=== PATIENT | female | born 1945 | race Caucasian/White ===

== ENCOUNTER 2019-03-10 20:42 | Inpatient (IN) ==
--- NOTE | 2019-03-10 21:09 | Emergency Department Note ---
ED Disposition Clinical Impression: Sepsis Qualifiers: Sepsis type: sepsis due to unspecified organism Sepsis acute organ dysfunction status: without acute organ dysfunction Qualified Code(s): A41.9 - Sepsis, unspecified organism UTI (urinary tract infection) Qualifiers: Urinary tract infection type: site unspecified Hematuria presence: without hematuria Qualified Code(s): N39.0 - Urinary tract infection, site not specified Disposition: Admitted As Inpatient Condition on Discharge: [facility] - Critical Care Critical Care Time: No Attestation: On 03/10/19, the high probability of a clinically significant, sudden or life threatening deterioration of the following system(s) required my full and direct attention, intervention and personal management. The time I documented below is in addition to time spent performing reported procedures but includes the following listed in this critical care notation. Medical Decision Making - [place] Inquiry Pt receiving controlled substance: No Vital Signs: 03/10/19 20:52 03/10/19 23:04 03/10/19 23:43 Temperature 98.5 F 100.9 F H 99.8 F H Temperature Source Oral Oral Oral Pulse Rate [Right Brachial] 105 H 94 H 85 Respiratory Rate 18 18 18 Blood Pressure [Right Arm] 137/72 138/63 130/57 L Blood Pressure Mean [Right Arm] 93 88 81 Blood Pressure Source [Right Arm] Automatic Cuff Automatic Cuff Automatic Cuff Blood Pressure Position [Right Arm] Sitting Sitting Sitting 02 Sat by Pulse Oximetry 95 97 96 Oxygen Delivery Method Room Air Room Air Room Air - Lab Data Lab Results 03/10/19 20:50: WBC 23.5 H*, RBC 4.04 L, Hgb 12.5, Hct 37.8, MCV 93.5, MCH 31.0, MCHC 33.2, RDW 12.4, Plt Count 256, MPV 7.4, Neut % (Auto) 82.0 H, Lymph % (Auto) 9.0 L, [place] % (Auto) 8.5, Eos % (Auto) 0.2, Baso % (Auto) 0.2, Neut # (Auto) 19.2 H, Lymph # (Auto) 2.1, [place] # (Auto) 2.0 H, Eos # (Auto) 0.1, Baso # (Auto) 0.1, Total Counted 100, Neutrophils % (Manual) 85 H, Lymphocytes % (Manual) 11, Monocytes % (Manual) 4, Platelet Estimate Normal, Anisocytosis 1+ 03/10/19 20:50: Sodium 132 L, Potassium 3.9, Chloride 96 L, Carbon Dioxide 24, Anion Gap 15.9 H, BUN 41 H, Creatinine 1.32 H, Estimated Creat Clear 25, Estimated GFR 40 L, Est GFR ( Amer) 48 L, Glucose 112 H, Calcium 9.4, Total Bilirubin 0.6, AST 20, ALT 21, Alkaline Phosphatase 112, Troponin I < 0.02, Total Protein 7.3, Albumin 2.6 L, Globulin 4.7 H, Albumin/Globulin Ratio 0.6 L 03/10/19 21:25: Urine Color Yellow, Urine Appearance Clear, Urine pH 5.5, Ur Specific [place] 1.025, Urine Protein 2+, Urine Glucose (UA) Negative, Urine Ketones Trace, Urine Blood 2+, Urine Nitrate Negative, Urine Bilirubin Negative, Urine Urobilinogen 0.2, Ur Leukocyte Esterase Trace, Urine WBC 10-20, Ur Squamous Epith Cells 3-5, Urine Bacteria 1+ 03/10/19 21:46: Lactate 0.9 Result diagrams: 03/10/19 20:50 03/10/19 20:50 Orders (Tests/Meds): ED MEDICATIONS Generic Name Dose Route Start Last Admin Trade Name Freq PRN Reason Stop Dose Admin Sodium Chloride 1,000 mls @ 999 mls/hr 03/10/19 22:00 03/10/19 21:53 Sod Chlor 0.9% 1000ml Bag IV 03/10/19 23:00 999 mls/hr .Q1H1M TONEY Administration Sodium Chloride 1,000 mls @ 999 mls/hr 03/10/19 23:00 03/10/19 22:56 Sod Chlor 0.9% 1000ml Bag IV 03/11/19 00:00 999 mls/hr .Q1H1M TONEY Administration Ceftriaxone Sodium 1 gm/ 50 mls @ 100 mls/hr 03/10/19 23:30 03/10/19 23:32 Sodium Chloride IV 03/24/19 23:29 100 mls/hr Q24H TONEY Administration Protocol Discontinued Medications Generic Name Dose Route Start Last Admin Trade Name Freq PRN Reason Stop Dose Admin Acetaminophen 650 mg 03/10/19 22:55 03/10/19 22:56 Acetaminophen 325mg Tab PO 03/10/19 22:56 650 mg ONCE ONE Administration Ioversol 70 ml 03/10/19 23:26 03/10/19 23:26 Rad-Optiray 350 100ml Vial IV 03/10/19 23:27 70 ml ONCE ONE Administration Protocol Sodium Chloride 10 ml 03/10/19 23:26 03/10/19 23:26 Rad-Saline Flush 10ml Syringe IV 03/10/19 23:27 10 ml ONCE ONE Administration Sodium Chloride 50 ml 03/10/19 23:26 03/10/19 23:26 Rad-Ns 50ml Vial IV 03/10/19 23:27 50 ml ONCE ONE Administration ORDERS Category Date Time Status CT abdomen pelvis w con Stat Cat Scan 03/10/19 22:[address] angio chest Stat Cat Scan 03/10/19 22:19 Taken XR chest 2V Stat Exams 03/10/19 21:03 Taken Blood Culture Stat Micro 03/10/19 21:49 Received Urine Culture Stat Micro 03/10/19 21:25 Received - Radiology Data #1 Image(s): Chest Image Reviewed: Yes I reviewed the patient's radiology image Preliminary Findings: Normal/NAD - CT Data CT Scan: Abdomen, Pelvis, Chest (CTA) Time Received: 00:[address] Reviewed: Yes: I have viewed the radiologist's interpretation Findings Narrative: CT scan interpreted by [facility] radiologist. Faxed report received and reviewed: Abdo/Pelvis: Bilateral perinephric and periureteral fat stranding with associated diffuse mural enhancement and thickening of the uroepithelium of the bilateral collecting system. CTA chest: No PE. - Physician Consults Physician Consulted: Delfino Time: 00:15 Reason -: Admission Comment/Response: Agrees to admit the patient to the hospital. We discussed the patient's clinical information, including history, exam, laboratory and radiology results and ED course. Per hospital procedure, I will write temporary bridge inpatient orders on the patient. Specific orders requested by the admitting physician: Continue antibiotics, IV fluids General Adult HPI - General Chief complaint: Weakness Stated complaint: Lung pain, dizziness Time Seen by Provider: 03/10/19 21:00 Mode of Arrival: Family Vehicle Limitations: No Limitations Description of Symptoms (Recalled from ER Triage Doc. by RN): Pt c/o being really weak and SOA, not eating for 2 days, she states she had cp earlier today when she took a deep breath but it no longer hurts, she denies any other symptoms at this time. - History of Present Illness HPI narrative: History obtained from patient and daughter. Patient broke her foot 3 days ago was seen in this emergency department. The day after that she began feeling extremely fatigued. Says she cannot hardly hold her eyes open. On Thursday, 2 days ago, she had some vomiting after she drank some coffee and ate cake. No vomiting since. She complains of lower abdominal pain today. Also complains of right lower anterior chest pain today. She developed a cough today, which is nonproductive. No fever, no diarrhea, no urinary symptoms. States she has only taken 2 pain pills, 1 was given in the emergency department and has only taken 1 pill since then. She is a smoker, but has not smoked since she got sick. She is a nondrinker. Primary care doctor is Dr. Cantu. - Related Data Home Medications Medication Instructions Recorded Confirmed Amlodipine Besylate 10 mg PO DAILY 03/07/19 03/07/19 Clopidogrel Bisulfate [Plavix 75mg 75 mg PO DAILY 03/07/19 03/07/19 Tab] Colestipol HCl 1 gm PO BID 03/07/19 03/07/19 Esomeprazole Magnesium 40 mg PO DAILY 03/07/19 03/07/19 Ezetimibe 10 mg PO HS 03/07/19 03/07/19 Levothyroxine Sodium 88 mcg PO DAILY 03/07/19 03/07/19 [Levothyroxine 88mcg (0.088mg) Tab] Metoprolol Succinate 25 mg PO DAILY 03/07/19 03/07/19 Rosuvastatin Calcium 40 mg PO HS 03/07/19 03/07/19 Ubidecarenone [Coq-10] 200 mg PO DAILY 03/07/19 03/07/19 hydroCHLOROthiazide [HCTZ 25mg 25 mg PO DAILY 03/07/19 03/07/19 tab] Previous Rx's Medication Instructions Recorded Hydrocodone/Acetaminophen [[place] 1 tab PO TID PRN 3 Days #10 tab 03/07/19 7.5-325 Tablet] Allergies Allergy/AdvReac Type Severity Reaction Status Date / Time albuterol Allergy Unknown Verified 03/07/19 10:46 ipratropium Allergy Unknown Verified 03/07/19 10:46 naproxen Allergy Unknown Verified 03/07/19 10:46 pravastatin Allergy Unknown Verified 03/07/19 10:46 simvastatin Allergy Unknown Verified 03/07/19 10:46 [facility] History - Hepatitis A Screen Drug use history?: No High risk sexual behaviors?: No History of sexually transmitted infection?: No Currently employed?: No Childcare worker?: No Do you have indoor plumbing?: Yes Do you have electricity?: Yes Attestation statement:: This patient has been screened for Hepatitis A risk factors. I have reviewed the patient's past medical history: Yes Medical History: Reports:: Cancer (hx of thyroid CA) Denies:: Diabetes Mellitus Type 1, Diabetes Mellitus Type 2 - Social History Smoking Status: Current every day smoker Tobacco Type: cigarettes # Packs/Day (cigarettes): 1 Alcohol Intake: never Occupational Status: other Housing: house ROS Obtained: Yes All systems reviewed & no additional complaints - Constitutional Constitutional: Reports fatigue, Denies fever(s), Reports malaise, Reports weakness - Cardiovascular Cardiovascular: Reports chest pain, Denies dyspnea - Respiratory Respiratory: Yes non-productive cough, No coughing up blood - Gastrointestinal Gastrointestingal: Reports: abdominal pain, vomiting. Denies: diarrhea - Genitourinary Female Genitourinary: Denies difficulty voiding Physical Exam - General General appearance: alert, in no apparent distress - Head Head exam: atraumatic, normocephalic - Eye Eye exam: Present: normal appearance, EOMI - ENT ENT exam: Present: mucous membranes moist - Neck Neck exam: Present: normal inspection, trachea midline. Absent: meningismus - Chest Chest inspection: Present: normal inspection, symmetric chest wall rise - Respiratory Respiratory exam: Present: normal lung sounds bilaterally. Absent: respiratory distress - Cardiovascular Cardiovascular exam: Present: regular rate, normal rhythm, normal heart sounds - Abdominal Exam Abdominal exam: Present: soft, tenderness, normal bowel sounds. Absent: distention, guarding, rebound, rigidity Abdominal tenderness: Present: RLQ, LLQ, suprapubic - Neurological Exam Neurological exam: Present: alert, oriented X3, CN II-XII intact. Absent: motor sensory deficit - Psychiatric Psychiatric exam: Present: normal affect, normal mood - Skin Skin exam: Present: warm, dry - Other Other exam information: Orthopedic boot present on left foot. No calf tenderness or edema. Right lower extremity shows no calf tenderness or edema.
[2019-03-10 21:11] LABS: Basophils # 0.1 K/mm3 (0-0.2); Basophils % 0.2 % (0.1-2.0); Eosinophils # 0.1 K/mm3 (0.0-0.4); Eosinophils % 0.2 % (0.1-12.0); Hematocrit 37.8 % (37.0-47.0); Hemoglobin 12.5 g/dL (12.2-16.2); Lymphocytes # 2.1 K/mm3 (0.7-4.5); Mean Corpuscular HGB Conc 33.2 g/dL (31.8-35.4); Mean Corpuscular Volume 93.5 fl (81-99); Mean Platelet Volume 7.4 fl (7.4-10.4); Monocytes % 8.5 % (1.7-9.3); Neutrophils # 19.2 K/mm3 (1.8-7.8); Platelet Count 256 K/mm3 (142-424); Red Blood Count 4.04 M/mm3 (4.20-5.40); Red Cell Distribution Width 12.4 % (11.5-17.5); White Blood Count 23.5 K/mm3 (4.8-10.8)
[2019-03-10 21:50] LABS: Microscopic, Urine URINE MICROSCOPIC (MICROSCOPIC)
[2019-03-10 21:52] LABS: Alanine Aminotransferase 21 U/L (12-78); Albumin Level 2.6 gm/dL (3.4-5.0); Albumin/Globulin Ratio 0.6 (1.1-1.8); Alkaline Phosphatase 112 U/L (46-116); Anion Gap 15.9 mEq/L (5-15); Aspartate Amino Transferase 20 U/L (15-37); Bilirubin,Total 0.6 mg/dL (0.2-1.0); Blood Urea Nitrogen 41 mg/dL (7-18); Calcium 9.4 mg/dL (8.5-10.1); Carbon Dioxide 24 mmol/L (21.0-32.0); Chloride 96 mmol/L (98-107); Globulin 4.7 gm/dl (1.3-3.2); Glucose 112 mg/dL (74-106); Sodium 132 mmol/L (136-145); Total Protein,Serum 7.3 gm/dL (6.4-8.2)
[2019-03-10 21:55] LABS: Anisocytosis 1+; Lymphocytes % 11 % (10-50); Monocytes % 4 % (2-9); Neutrophils % 85 % (42-76); Total Cells Counted 100
[2019-03-10 21:58] LABS: Appearance,Urine CLEAR (Clear); Blood, Urine 2+ (Negative); Color,Urine YELLOW (Yellow); Glucose,Urine (UA) Negative (Negative); Ketones,Urine TRACE (Negative); Leukocyte Esterase,Urine TRACE (Negative); PH,Urine 5.5 (5.0-8.5); Protein,Urine 2+ (Negative); Specific Gravity, Urine 1.025 (1.005-1.030); Urobilinogen,Urine 0.2 EU/dl (0.2)
[2019-03-10 22:00] LABS: Bilirubin,Urine Negative (Negative)
[2019-03-10 22:45] LABS: Bacteria,Urine 1+ /lpf
--- NOTE | 2019-03-11 07:13 | History & Physical Report ---
*Admission Date: 03/11/19 *Chief complaint: Weakness *History of present illness: 73-year-old female with recent history of UTI treated as an outpatient presented to the emergency department for the second time this week with a complaint of generalized weakness. Patient had been seen in the emergency department earlier in the week and diagnosed with a left foot fracture. She returned overnight. Patient reports that she has been weak most of the week. She has been unable to eat and has lacked any appetite. She denies diarrhea and has vomited perhaps once. Mostly she felt extremely tired all week long with significant decrease in her regular level of activity. She was brought to the emergency department last night. Work-up revealed a white count of 23,000, abnormal urine, CT scan which showed inflammatory changes around the ureters and bladder. Patient was admitted with a diagnosis of complicated urinary tract infection and sepsis. She has been started on Rocephin intravenously [facility] History I have reviewed the patient's past medical history: Yes Medical History: Reports:: Cancer (hx of thyroid CA), Coronary Artery Disease, Gastroesophageal Reflux Disease(GERD), Hyperlipidemia Denies:: Diabetes Mellitus Type 1, Diabetes Mellitus Type 2, MRSA *Have you ever received a pneumonia vaccine?: No (longer than 5 years) *Have you received a flu vaccine this season?: No (outside) Other Medical History: Reports: Thyroid Disease Laterality Cases: Left: Other Other Surgeries: Yes: CABG (2010), Thyroidectomy Amputation: No Fractures: No - *Social History Smoking Status: Former smoker Tobacco Type: cigarettes # Packs/Day (cigarettes): 1 Alcohol Intake: never *Occupational Status:: other Housing: house *Travel in the last 8 weeks: None - Psychiatric History Expresses thoughts of harming self/others: None Family Hx:: Coronary Artery Disease, Hypertension Review of Systems - Constitutional Reports anorexia, Reports body ache(s), Reports chills, Reports daytime sleepiness, Reports fever(s), Reports lack of energy, Reports malaise, Reports weakness - *Cardiovascular Denies chest pain, Denies chest pain at rest, Denies chest pain with activity - *Respiratory Denies change in phlegm color, Denies chest congestion, Denies cough, Denies shortness of breath - *Gastrointestinal Denies abdominal pain - *Genitourinary Denies abnormal vaginal bleeding, Denies difficulty urinating, Denies painful urination, Denies blood in urine, Denies frequent nighttime urination, Denies dribbling after urination, Denies difficulty starting urination, Denies urinary incontinence, Denies urinary urgency - *Musculoskeletal Denies joint pain - *Neurologic Reports weakness Meds Home Medications Medication Instructions Recorded Confirmed Type Amlodipine Besylate 10 mg PO DAILY 03/07/19 03/11/19 History Clopidogrel Bisulfate [Plavix 75mg 75 mg PO DAILY 03/07/19 03/11/19 History Tab] Colestipol HCl 1 gm PO BID 03/07/19 03/11/19 History Esomeprazole Magnesium 40 mg PO DAILY 03/07/19 03/11/19 History Ezetimibe 10 mg PO HS 03/07/19 03/11/19 History Hydrocodone/Acetaminophen [[place] 1 tab PO TID PRN 3 Days #10 tab 03/07/19 Rx 7.5-325 Tablet] Levothyroxine Sodium 88 mcg PO DAILY 03/07/19 03/11/19 History [Levothyroxine 88mcg (0.088mg) Tab] Metoprolol Succinate 25 mg PO DAILY 03/07/19 03/11/19 History Rosuvastatin Calcium 40 mg PO HS 03/07/19 03/11/19 History Ubidecarenone [Coq-10] 200 mg PO DAILY 03/07/19 03/11/19 History hydroCHLOROthiazide [HCTZ 25mg 25 mg PO DAILY 03/07/19 03/11/19 History tab] Allergies Allergy/AdvReac Type Severity Reaction Status Date / Time albuterol Allergy Mild Hives Verified 03/11/19 01:38 ipratropium Allergy Mild Hives Verified 03/11/19 01:38 naproxen Allergy Mild Hives Verified 03/11/19 01:38 pravastatin Allergy Mild Hives Verified 03/11/19 01:38 simvastatin Allergy Mild Hives Verified 03/11/19 01:38 Exam Vital signs and Labs for Last 24 Hours: Temp Pulse Resp BP Pulse Ox 101.2 F H 100 H 16 117/51 L 91 L 03/11/19 04:00 03/11/19 04:00 03/11/19 04:00 03/11/19 04:00 03/11/19 04:00 Laboratory Results - last 24 hr 03/10/19 20:50: WBC 23.5 H*, RBC 4.04 L, Hgb 12.5, Hct 37.8, MCV 93.5, MCH 31.0, MCHC 33.2, RDW 12.4, Plt Count 256, MPV 7.4, Neut % (Auto) 82.0 H, Lymph % (Auto) 9.0 L, [place] % (Auto) 8.5, Eos % (Auto) 0.2, Baso % (Auto) 0.2, Neut # (Auto) 19.2 H, Lymph # (Auto) 2.1, [place] # (Auto) 2.0 H, Eos # (Auto) 0.1, Baso # (Auto) 0.1, Total Counted 100, Neutrophils % (Manual) 85 H, Lymphocytes % (Manual) 11, Monocytes % (Manual) 4, Platelet Estimate Normal, Anisocytosis 1+ 03/10/19 20:50: Sodium 132 L, Potassium 3.9, Chloride 96 L, Carbon Dioxide 24, Anion Gap 15.9 H, BUN 41 H, Creatinine 1.32 H, Estimated Creat Clear 25, Estimated GFR 40 L, Est GFR ( Amer) 48 L, Glucose 112 H, Calcium 9.4, Total Bilirubin 0.6, AST 20, ALT 21, Alkaline Phosphatase 112, Troponin I < 0.02, Total Protein 7.3, Albumin 2.6 L, Globulin 4.7 H, Albumin/Globulin Ratio 0.6 L 03/10/19 21:25: Urine Color Yellow, Urine Appearance Clear, Urine pH 5.5, Ur Specific [place] 1.025, Urine Protein 2+, Urine Glucose (UA) Negative, Urine Ketones Trace, Urine Blood 2+, Urine Nitrate Negative, Urine Bilirubin Negative, Urine Urobilinogen 0.2, Ur Leukocyte Esterase Trace, Urine WBC 10-20, Ur Squamous Epith Cells 3-5, Urine Bacteria 1+ 03/10/19 21:46: Lactate 0.9 I & O for Last 24 hours: Intake & Output 03/08/19 03/09/19 03/10/19 03/11/19 11:59 11:59 11:59 11:59 Intake Total 516 / 516 Balance 516 / 516 Weight 93 lb 8 oz - Constitutional no acute distress, thin - *Routine HEENT Exam Head: Present: normocephalic Eye: Present: EOMI, PERRL ENT: Present: mucous membranes moist - *Routine Neck Exam Present: supple, full ROM. Absent: JVD, carotid bruit - *Routine Respiratory Exam Present: CTA bilaterally - *Routine Cardiovascular Exam Present: RRR, Normal S1, Normal S2 - *Routine Abdominal Exam Present: soft, normoactive bowel sounds. Absent: tenderness, distended, rebound, guarding - *Routine Extremities Exam Present: full ROM, pulses intact, normal capillary refill. Absent: cyanosis, clubbing, edema, calf tenderness Assessment and Plan (1) Sepsis Current visit: Yes Status: Acute Qualifiers: Sepsis type: sepsis due to unspecified organism Sepsis acute organ dysfunction status: without acute organ dysfunction Qualified Code(s): A41.9 - Sepsis, unspecified organism Category: Medical Code(s): A41.9 - Sepsis, unspecified organism (2) UTI (urinary tract infection) Current visit: Yes Status: Acute Qualifiers: Urinary tract infection type: site unspecified Hematuria presence: without hematuria Qualified Code(s): N39.0 - Urinary tract infection, site not specified Category: Medical Code(s): N39.0 - Urinary tract infection, site not specified (3) Coronary artery disease Current visit: Yes Status: Chronic Category: Medical Code(s): I25.10 - Atherosclerotic heart disease of [place] coronary artery without angina pectoris (4) Hypothyroidism Current visit: Yes Status: Chronic Category: Medical Code(s): E03.9 - Hypothyroidism, unspecified - Assessment and plan all Dx Assessment and Plan for all problems:: 1. Continue IV fluids and intravenous Rocephin and await cultures 2. Home medications
[2019-03-11 07:44] LABS: Basophils % 0.2 % (0.1-2.0); Eosinophils % 0.2 % (0.1-12.0); Hematocrit 34.1 % (37.0-47.0); Lymphocytes # 1.6 K/mm3 (0.7-4.5); Lymphocytes % 7.9 % (10-50); Mean Corpuscular HGB Conc 32.2 g/dL (31.8-35.4); Mean Corpuscular Volume 96.6 fl (81-99); Monocytes # 1.2 K/mm3 (0.1-1.0); Monocytes % 6.1 % (1.7-9.3); Neutrophils # 17.2 K/mm3 (1.8-7.8); Neutrophils % 85.6 % (37.0-80.0); Platelet Count 203 K/mm3 (142-424); Red Blood Count 3.53 M/mm3 (4.20-5.40); Red Cell Distribution Width 12.4 % (11.5-17.5); White Blood Count 20.1 K/mm3 (4.8-10.8)
[2019-03-11 07:48] LABS: Anion Gap 13.6 mEq/L (5-15)
[2019-03-11 08:05] LABS: Calcium 8.5 mg/dL (8.5-10.1)
--- NOTE | 2019-03-11 08:08 | Pharmacy Consult Notes ---
[facility] Pharmacy VTE Monitoring - Patient Demographics Admission date: 03/10/19 Report Date: 03/11/19 Time: 08:08 Allergies/Adverse Reactions: Patient Allergies albuterol Allergy (Mild, Verified 03/11/19 01:38) Hives ipratropium Allergy (Mild, Verified 03/11/19 01:38) Hives naproxen Allergy (Mild, Verified 03/11/19 01:38) Hives pravastatin Allergy (Mild, Verified 03/11/19 01:38) Hives simvastatin Allergy (Mild, Verified 03/11/19 01:38) Hives Height: 1.52 m Weight: 42.411 kg Patient Problems: Current Active Problems Sepsis (Acute) UTI (urinary tract infection) (Acute) Coronary artery disease (Chronic) Hypothyroidism (Chronic) - VTE Risk Labs: VTE Related Lab Results Hgb 12.5 g/dL (12.2-16.2) 03/10/19 20:50 Hct 34.1 % (37.0-47.0) L 03/11/19 07:20 Plt Count 203 K/mm3 (142-424) 03/11/19 07:20 BUN 31 mg/dL (7-18) H 03/11/19 07:20 Creatinine 1.02 mg/dL (0.55-1.02) D 03/11/19 07:20 Estimated Creat Clear 34 mL/min (50-200) 03/11/19 07:20 Was VTE Risk Assessment Performed: Yes VTE Score: 9 VTE Risk Level: Moderate Risk - Prophylaxis VTE Prophylaxis Ordered?: Yes Types of VTE Prophylaxis: TEDS Knee High Location of Applied Device: Bilateral Lower Extremeties - VTE Diagnosis Confirmed Treatment or plan recommended: Continue Current Treatment
[2019-03-11 08:40] LABS: Lymphocytes % 11 % (10-50); Monocytes % 7 % (2-9); Neutrophils % 76 % (42-76); Total Cells Counted 100
[2019-03-11 09:02] LABS: Hemoglobin 11.1 g/dL (12.2-16.2)
[2019-03-12 07:10] LABS: Basophils % 0.1 % (0.1-2.0); Eosinophils # 0.9 K/mm3 (0.0-0.4); Eosinophils % 5.3 % (0.1-12.0); Hematocrit 31.7 % (37.0-47.0); Hemoglobin 10.5 g/dL (12.2-16.2); Lymphocytes # 1.8 K/mm3 (0.7-4.5); Lymphocytes % 11.2 % (10-50); Mean Corpuscular Volume 93.9 fl (81-99); Mean Platelet Volume 7.3 fl (7.4-10.4); Monocytes # 1.3 K/mm3 (0.1-1.0); Monocytes % 7.9 % (1.7-9.3); Neutrophils # 12.4 K/mm3 (1.8-7.8); Neutrophils % 75.6 % (37.0-80.0); Platelet Count 212 K/mm3 (142-424); Red Blood Count 3.38 M/mm3 (4.20-5.40); Red Cell Distribution Width 12.6 % (11.5-17.5); White Blood Count 16.4 K/mm3 (4.8-10.8)
[2019-03-12 07:16] LABS: Anion Gap 13.9 mEq/L (5-15); Calcium 8.1 mg/dL (8.5-10.1)
--- NOTE | 2019-03-12 07:37 | Progress Note ---
Internal Medicine - PN: Subj *Date: 03/12/19 *Time: 07:35 Interval history: Patient has no complaints this morning. She had additional fevers overnight. She admits she feels a little more energetic this morning. Blood cultures are showing what appears to be E. coli. No sensitivities are available yet Exam Vital signs and Labs for Last 24 Hours: Temp Pulse Resp BP Pulse Ox 100.1 F H 83 20 121/99 H 94 L 03/12/19 04:00 03/12/19 04:00 03/12/19 04:00 03/12/19 04:00 03/12/19 04:00 Laboratory Results - last 24 hr 03/11/19 07:20: WBC 20.1 H*, RBC 3.53 L, Hgb 11.1 L D, Hct 34.1 L, MCV 96.6, MCH 31.1, MCHC 32.2, RDW 12.4, Plt Count 203, MPV 8.0, Neut % (Auto) 85.6 H, Lymph % (Auto) 7.9 L, [place] % (Auto) 6.1, Eos % (Auto) 0.2, Baso % (Auto) 0.2, Neut # (Auto) 17.2 H, Lymph # (Auto) 1.6, [place] # (Auto) 1.2 H, Eos # (Auto) 0.0, Baso # (Auto) 0.0, Total Counted 100, Neutrophils % (Manual) 76, Band Neutrophils % 4.0, Lymphocytes % (Manual) 11, Atypical Lymphs % 2.0, Monocytes % (Manual) 7, Platelet Estimate Normal 03/11/19 07:20: Sodium 140, Potassium 3.6, Chloride 106, Carbon Dioxide 24, Anion Gap 13.6, BUN 31 H, Creatinine 1.02 D, Estimated Creat Clear 34, Estimated GFR 53 L, Est GFR ( Amer) 65 D, Glucose 100, Calcium 8.5 03/12/19 06:15: WBC 16.4 H, RBC 3.38 L, Hgb 10.5 L, Hct 31.7 L, MCV 93.9, MCH 31.0, MCHC 33.0, RDW 12.6, Plt Count 212, MPV 7.3 L, Neut % (Auto) 75.6, Lymph % (Auto) 11.2, [place] % (Auto) 7.9, Eos % (Auto) 5.3, Baso % (Auto) 0.1, Neut # (Auto) 12.4 H, Lymph # (Auto) 1.8, [place] # (Auto) 1.3 H, Eos # (Auto) 0.9 H, Baso # (Auto) 0.0 03/12/19 06:15: Sodium 142, Potassium 2.9 L*, Chloride 108 H, Carbon Dioxide 23, Anion Gap 13.9, BUN 15 D, Creatinine 0.70 D, Estimated Creat Clear 36, Estimated GFR 82, Est GFR ( Amer) 100 D, Glucose 90, Calcium 8.1 L I & O for Last 24 hours: Intake & Output 03/09/19 03/10/19 03/11/19 03/12/19 11:59 11:59 11:59 11:59 Intake Total 636 / 636 2044 Balance 636 / 636 2044 Weight 93 lb 8.004 oz 97 lb 8 oz Microbiology Reports for the Last 24 Hours: Microbiology 03/10/19 21:25 Urine,Clean Catch Urine Culture - Preliminary NO GROWTH AFTER 24 HOURS 03/10/19 21:49 Blood Blood Culture - Preliminary 03/10/19 21:49 Blood Blood Culture - Preliminary Narrative: She is in no distress. Lungs are clear. Heart has a regular rate and rhythm. Abdomen is thin and soft. Assessment and Plan (1) Sepsis Current visit: Yes Status: Acute Qualifiers: Sepsis type: sepsis due to unspecified organism Sepsis acute organ dysfunction status: without acute organ dysfunction Qualified Code(s): A41.9 - Sepsis, unspecified organism Category: Medical Code(s): A41.9 - Sepsis, unspecified organism (2) UTI (urinary tract infection) Current visit: Yes Status: Acute Qualifiers: Urinary tract infection type: site unspecified Hematuria presence: without hematuria Qualified Code(s): N39.0 - Urinary tract infection, site not specified Category: Medical Code(s): N39.0 - Urinary tract infection, site not specified (3) Coronary artery disease Current visit: Yes Status: Chronic Category: Medical Code(s): I25.10 - Atherosclerotic heart disease of [place] coronary artery without angina pectoris (4) Hypothyroidism Current visit: Yes Status: Chronic Category: Medical Code(s): E03.9 - H ypothyroidism, unspecified - Assessment and plan all Dx Assessment and Plan for all problems:: Continue intravenous Rocephin and await finalization of blood cultures. PICC line will be placed as patient will need at least 1 week of IV antibiotics
--- NOTE | 2019-03-12 07:53 | Electrocardiograph Report ---
APPROVED REPORT Exam: Resting ECG HR:100 bpm ECG Measurements Heart Rate 100 AXES [place] 136 P 70 QRSd 80 QRS 72 QT 336 T62 QTc 433 <Conclusion> Normal sinus rhythm left atrial abnormality Nonspecific ST abnormality Abnormal ECG Electronically signed by : Chinedu Ziegler, 03/12/2019 07:52:42
[2019-03-12 12:14] LABS: Eosinophils % 3 % (0-3); Lymphocytes % 12 % (10-50); Monocytes % 7 % (2-9); Neutrophils % 78 % (42-76); RBC Morphology Normal; Total Cells Counted 100
[2019-03-13 06:54] LABS: Basophils % 0.2 % (0.1-2.0); Eosinophils # 0.8 K/mm3 (0.0-0.4); Hematocrit 32.4 % (37.0-47.0); Hemoglobin 10.9 g/dL (12.2-16.2); Lymphocytes # 2.4 K/mm3 (0.7-4.5); Lymphocytes % 18.2 % (10-50); Mean Corpuscular HGB Conc 33.5 g/dL (31.8-35.4); Mean Corpuscular Volume 92.9 fl (81-99); Mean Platelet Volume 7.1 fl (7.4-10.4); Monocytes % 7.8 % (1.7-9.3); Neutrophils # 8.8 K/mm3 (1.8-7.8); Neutrophils % 67.7 % (37.0-80.0); Platelet Count 261 K/mm3 (142-424); Red Blood Count 3.49 M/mm3 (4.20-5.40); Red Cell Distribution Width 12.5 % (11.5-17.5); White Blood Count 13.1 K/mm3 (4.8-10.8)
--- NOTE | 2019-03-13 08:26 | Progress Note ---
Internal Medicine - PN: Jaskaran *Date: 03/13/19 *Time: 08:22 Interval history: Patient reports persistence of lower abdominal pain and back discomfort. Stool studies yesterday also revealed E. coli in the stool. However, patient's stool has become solid and diarrhea has seemingly resolved. She did had a fever to 101 degrees overnight Exam Vital signs and Labs for Last 24 Hours: Temp Pulse Resp BP Pulse Ox 98.9 F 72 18 115/61 96 03/13/19 04:00 03/13/19 04:00 03/13/19 04:00 03/13/19 04:00 03/13/19 07:52 Laboratory Results - last 24 hr 03/10/19 21:25: Urine Color Yellow, Urine Appearance Clear, Urine pH 5.5, Ur Specific [place] 1.025, Urine Protein 2+, Urine Glucose (UA) Negative, Urine Ketones Trace, Urine Blood 2+, Urine Nitrate Negative, Urine Bilirubin Negative, Urine Urobilinogen 0.2, Ur Leukocyte Esterase Trace, Urine WBC 10-20, Ur Squamous Epith Cells 3-5, Urine Bacteria 1+ 03/11/19 12:10: Stl Aeromonas (PCR) Not detected, Stl C. cayetanensis PCR Not detected, Stool Rotavirus (PCR) Not detected, Stl Adenov F 40/41 PCR Not detected, Stool Astrovirus (PCR) Not detected, Stool Campylobacter PCR Not detected, Stl C.difficile Tox PCR Not detected, Stool Cryptosporidium PCR Not detected, Stl E.coli Shiga Tox PCR Not detected, Stool E coli O157 PCR Not detected, Stl Enterotoxigenic E PCR Not detected, Stool EPEC (PCR) Detected A, S tool EAEC (PCR) Not detected, Stl E. histolytica PCR Not detected, Stool Giardia Lamblia PCR Not detected, Stool Salmonella PCR Not detected, Stool Sapovirus (PCR) Not detected, Stl P. shigelloides PCR Not detected, Stl Shigella/EIEC PCR Not detected, St Y.enterocolitica PCR Not detected, Stool Vibrio (PCR) Not detected, Stl Vibrio cholerae PCR Not detected, Stl Norovirus GI/GII PCR Not detected 03/12/19 06:15: Total Counted 100, Neutrophils % (Manual) 78 H, Lymphocytes % (Manual) 12, Monocytes % (Manual) 7, Eosinophils % (Manual) 3, Platelet Estimate Normal, RBC Morphology Normal 03/13/19 06:45: WBC 13.1 H, RBC 3.49 L, Hgb 10.9 L, Hct 32.4 L, MCV 92.9, MCH 31.1, MCHC 33.5, RDW 12.5, Plt Count 261, MPV 7.1 L, Neut % (Auto) 67.7, Lymph % (Auto) 18.2, [place] % (Auto) 7.8, Eos % (Auto) 6.0, Baso % (Auto) 0.2, Neut # (Auto) 8.8 H, Lymph # (Auto) 2.4, [place] # (Auto) 1.0, Eos # (Auto) 0.8 H, Baso # (Auto) 0.0 I & O for Last 24 hours: Intake & Output 03/10/19 03/11/19 03/12/19 03/13/19 11:59 11:59 11:59 11:59 Intake Total 636 / 636 2285 / 2285 2237 / 2237 Balance 636 / 636 2285 / 2285 2237 / 223 Weight 93 lb 8.004 oz 97 lb 8 oz 97 lb 5 oz Microbiology Reports for the Last 24 Hours: Microbiology 03/10/19 21:49 Blood Blood Culture - Preliminary Gram Negative Rods 03/10/19 21:49 Blood Blood Culture - Preliminary Gram Negative Rods 03/10/19 21:25 Urine,Clean Catch Urine Culture - Preliminary Gram Negative Rods Narrative: Patient is awake and alert. Lungs are clear. Heart has a regular rate and rhythm. Abdomen is soft and nontender. Bowel sounds are present Assessment and Plan (1) Sepsis Current visit: Yes Status: Acute Qualifiers: Sepsis type: sepsis due to unspecified organism Sepsis acute organ dysfunction status: without acute organ dysfunction Qualified Code(s): A41.9 - Sepsis, unspecified organism Category: Medical Code(s): A41.9 - Sepsis, unspecified organism (2) UTI (urinary tract infection) Current visit: Yes Status: Acute Qualifiers: Urinary tract infection type: site unspecified Hematuria presence: without hematuria Qualified Code(s): N39.0 - Urinary tract infection, site not specified Category: Medical Code(s): N39.0 - Urinary tract infection, site not specified (3) Coronary artery disease Current visit: Yes Status: Chronic Category: Medical Code(s): I25.10 - Atherosclerotic heart disease of craig coronary artery without angina pectoris (4) Hypothyroidism Current visit: Yes Status: Chronic Category: Medical Code(s): E03.9 - Hypothyroidism, unspecified (5) E. coli colitis Current visit: Yes Status: Acute Category: Medical Code(s): A04.4 - Other intestinal Escherichia coli infections - Assessment and plan all Dx Assessment and Plan for all problems:: 1. DC IV fluids 2. Start oral potassium supplementation 3. Continue intravenous Rocephin as white count is trending down. Await final blood and urine culture results. Continue to monitor for fever. 4. Possible discharge tomorrow. Patient will need to complete a course of IV antibiotics as an outpatient
[2019-03-14 07:29] LABS: Basophils # 0.1 K/mm3 (0-0.2); Basophils % 0.4 % (0.1-2.0); Eosinophils # 0.7 K/mm3 (0.0-0.4); Eosinophils % 4.7 % (0.1-12.0); Hematocrit 35.1 % (37.0-47.0); Hemoglobin 11.4 g/dL (12.2-16.2); Lymphocytes # 3.5 K/mm3 (0.7-4.5); Mean Corpuscular HGB Conc 32.4 g/dL (31.8-35.4); Mean Corpuscular Volume 93.5 fl (81-99); Mean Platelet Volume 7.1 fl (7.4-10.4); Monocytes # 1.2 K/mm3 (0.1-1.0); Monocytes % 7.8 % (1.7-9.3); Neutrophils # 10.3 K/mm3 (1.8-7.8); Neutrophils % 65.2 % (37.0-80.0); Platelet Count 293 K/mm3 (142-424); Red Blood Count 3.75 M/mm3 (4.20-5.40); Red Cell Distribution Width 12.7 % (11.5-17.5); White Blood Count 15.9 K/mm3 (4.8-10.8)
[2019-03-14 07:56] LABS: Anion Gap 12.9 mEq/L (5-15)
--- NOTE | 2019-03-14 08:18 | Discharge Summary ---
General - General Admission date:: 03/11/19 Discharge date: 03/14/19 HPI HPI: 73-year-old female with recent history of UTI treated as an outpatient presented to the emergency department for the second time this week with a complaint of generalized weakness. Patient had been seen in the emergency department earlier in the week and diagnosed with a left foot fracture. She returned overnight. Patient reports that she has been weak most of the week. She has been unable to eat and has lacked any appetite. She denies diarrhea and has vomited perhaps once. Mostly she felt extremely tired all week long with significant decrease in her regular level of activity. She was brought to the emergency department last night. Work-up revealed a white count of 23,000, abnormal urine, CT scan which showed inflammatory changes around the ureters and bladder. Patient was admitted with a diagnosis of complicated urinary tract infection and sepsis. She has been started on Rocephin intravenously Hospital Course Hospital Course: Patient was admitted and started on IV Rocephin and IV fluids. White count trended down. On the second day of admission patient developed significant diarrhea and stool studies were performed. Ultimately patient's blood culture, urine culture grew E. coli and stool testing was also positive for enteropathogenic E. coli. Patient's E. coli was sensitive to the Rocephin. A PICC line was placed and patient was continued on Rocephin intravenously while hospitalized. On March 14 patient had been fever free for 24 hours. Complaints of lower abdominal pain had resolved. Patient was no longer having diarrhea. Patient was discharged home. She will continue outpatient IV antibiotics with Rocephin 1 g IV daily through March 20. Objective Vital signs: Temp Pulse Resp BP Pulse Ox 99.2 F 84 16 135/66 96 03/14/19 04:00 03/14/19 04:00 03/14/19 04:00 03/14/19 04:00 03/14/19 04:00 no acute distress - *Routine Respiratory Exam Present: CTA bilaterally - *Routine Cardiovascular Exam Present: RRR, Normal S1, Normal S2 - *Routine Abdominal Exam Present: soft, normoactive bowel sounds. Absent: tenderness, distended - Routine Back/Spine/Pelvis Exam Back/Spine: Present: full ROM. Absent: CVA tenderness Results Labs on day of discharge: Labs from last 24 hours 03/14/19 03/14/19 06:45 06:45 WBC 15.9 H RBC 3.75 L Hgb 11.4 L Hct 35.1 L MCV 93.5 MCH 30.3 MCHC 32.4 RDW 12.7 Plt Count 293 MPV 7.1 L Neut % (Auto) 65.2 Lymph % (Auto) 22.0 [place] % (Auto) 7.8 Eos % (Auto) 4.7 Baso % (Auto) 0.4 Neut # (Auto) 10.3 H Lymph # (Auto) 3.5 [place] # (Auto) 1.2 H Eos # (Auto) 0.7 H Baso # (Auto) 0.1 Sodium 142 Potassium 3.9 D Chloride 106 Carbon Dioxide 27 Anion Gap 12.9 BUN 8 D Creatinine 0.80 Estimated Creat Clear 36 Estimated GFR 71 Est GFR ( Amer) 86 Glucose 84 Calcium 9.0 D Preliminary micro results at discharge 03/10/19 21:49 Blood Culture - Preliminary Blood Escherichia coli 03/10/19 21:49 Blood Culture - Preliminary Blood Escherichia coli 03/10/19 21:25 Urine Culture - Preliminary Urine,Clean Catch Gram Negative Rods DS: Diagnosis - Discharge Diagnosis (1) E. coli sepsis Status: Acute (2) Sepsis Status: Acute (3) UTI (urinary tract infection) Status: Acute (4) Coronary artery disease Status: Chronic (5) Hypothyroidism Status: Chronic (6) E. coli colitis Status: Acute Discharge Plan - Patient Discharge Instructions ACTIVITY: Continue current activity DIET: continue same diet Additional Instructions: No work 03/11-03/27/19 Patient Instructions: Escherichia coli Infection, DI for Urinary Tract Infection (UTI), Peripherally Inserted Central Catheter, Central Line-Associated Bloodstream Infections, DI for Sepsis -- Adult - Follow up Plan Follow up with: Chinedu Cantu MD [Primary Care Provider] - 1 week Disposition: Home, Self-[facility] Medications: Home Medications Medication Instructions Recorded Confirmed Type Amlodipine Besylate 10 mg PO DAILY 03/07/19 03/11/19 History Clopidogrel Bisulfate [Plavix 75mg 75 mg PO DAILY 03/07/19 03/11/19 History Tab] Colestipol HCl 1 gm PO BID 03/07/19 03/11/19 History Esomeprazole Magnesium 40 mg PO DAILY 03/07/19 03/11/19 History Ezetimibe 10 mg PO HS 03/07/19 03/11/19 History Hydrocodone/Acetaminophen [[place] 1 tab PO TID PRN 3 Days #10 tab 03/07/19 03/11/19 Rx 7.5-325 Tablet] Levothyroxine Sodium 88 mcg PO DAILY 03/07/19 03/11/19 History [Levothyroxine 88mcg (0.088mg) Tab] Metoprolol Succinate 25 mg PO DAILY 03/07/19 03/11/19 History Rosuvastatin Calcium 40 mg PO HS 03/07/19 03/11/19 History Ubidecarenone [Coq-10] 200 mg PO DAILY 03/07/19 03/11/19 History hydroCHLOROthiazide [HCTZ 25mg 25 mg PO DAILY 03/07/19 03/11/19 History tab] Prescriptions/Medication Reconciliation: New Ceftriaxone Sodium [Rocephin 1gm vial] 1 gm IV Q24H vial Continued Ubidecarenone [Coq-10] 200 mg PO DAILY Metoprolol Succinate 25 mg PO DAILY Levothyroxine Sodium [Levothyroxine 88mcg (0.088mg) Tab] 88 mcg PO DAILY hydroCHLOROthiazide [HCTZ 25mg tab] 25 mg PO DAILY Ezetimibe 10 mg PO HS Esomeprazole Magnesium 40 mg PO DAILY Colestipol HCl 1 gm PO BID Clopidogrel Bisulfate [Plavix 75mg Tab] 75 mg PO DAILY Amlodipine Besylate 10 mg PO DAILY Rosuvastatin Calcium 40 mg PO HS Hydrocodone/Acetaminophen [Beck[place] 7.5-325 Tablet] 1 tab PO TID PRN 3 Days #10 tab PRN Reason: Moderate To Severe Pain - Problem Reconciliation Problems Reviewed?: Yes
[2019-03-14 10:56] LABS: Eosinophils % 1 % (0-3); Lymphocytes % 18 % (10-50); Monocytes % 3 % (2-9); Neutrophils % 78 % (42-76); RBC Morphology Normal; Total Cells Counted 100
== END 2019-03-14 09:54 | disposition home or self-care (01) | DRG 872 ==
LOC: ER 20:42 → 2ND 20:42 → OBSVTOIN 03-11 01:20 → 2ND 03-11 01:24
PROVIDERS: ADMIT Internal Medicine Adolescent Medicine; ATTEND Family Medicine
CPT/HCPCS: 36415; 36569; 71010; 71020; 71045; 71046; 71275; 74177; 80048; 80053; 81001; 83605; 84484; 85007; 85025; 87040; 87077; 87086; 87088; 87186; 87507; 93005; 96365; 96367; 99285; C1751; J2405; Q9967

== ENCOUNTER 2019-03-15 10:54 | Outpatient (CLI) | payer MEDICARE, OTHER, SELFPAY ==
[2019-03-15 11:18] VITALS: BP 97/57; PULSE 77; RESP 18; TEMP 36.6; O2SAT 95
[2019-03-15 11:48] VITALS: BP 101/59; PULSE 78; RESP 18; O2SAT 96
[2019-03-15 12:10] VITALS: BP 99/54; PULSE 79; RESP 18; O2SAT 96
== END 2019-03-15 12:10 | disposition home or self-care (01) ==
LOC: INF 10:54
PROVIDERS: PCP Family Medicine; Visit Provider Family Medicine
DX: N39.0 Urinary tract infection, site not specified (principal); A41.51 Sepsis due to Escherichia coli [E. coli]
CPT/HCPCS: 96365

== ENCOUNTER 2019-03-16 09:53 | Outpatient (CLI) | payer MEDICARE, OTHER, SELFPAY ==
[2019-03-16 09:57] VITALS: BP 94/53; PULSE 75; RESP 18; TEMP 36.3; O2SAT 99
[2019-03-16 11:03] VITALS: BP 98/48; PULSE 64; RESP 18; O2SAT 96
== END 2019-03-16 11:03 | disposition home or self-care (01) ==
LOC: INF 09:53
PROVIDERS: Visit Provider Family Medicine
DX: N39.0 Urinary tract infection, site not specified (principal); A41.51 Sepsis due to Escherichia coli [E. coli]
CPT/HCPCS: 96365

== ENCOUNTER 2019-03-17 09:04 | Outpatient (CLI) | payer MEDICARE, OTHER, SELFPAY ==
[2019-03-17 09:23] VITALS: BP 110/60; PULSE 77; RESP 18; TEMP 36.4; O2SAT 99
[2019-03-17 09:53] VITALS: BP 99/57; PULSE 79; RESP 18; O2SAT 98
[2019-03-17 10:15] VITALS: BP 98/62; PULSE 70; RESP 18; O2SAT 98
== END 2019-03-17 10:15 | disposition home or self-care (01) ==
LOC: INF 09:04
PROVIDERS: Visit Provider Family Medicine
DX: N39.0 Urinary tract infection, site not specified (principal); A41.51 Sepsis due to Escherichia coli [E. coli]
CPT/HCPCS: 96365

== ENCOUNTER 2019-03-18 10:00 | Outpatient (CLI) | payer MEDICARE, OTHER, SELFPAY ==
[2019-03-18 10:15] VITALS: BP 96/50; PULSE 76; RESP 18; TEMP 36.6; O2SAT 98
[2019-03-18 10:50] VITALS: BP 99/50; PULSE 70; RESP 20
== END 2019-03-18 11:30 | disposition home or self-care (01) ==
LOC: INF 10:05
PROVIDERS: Visit Provider Family Medicine
DX: N39.0 Urinary tract infection, site not specified (principal); A41.51 Sepsis due to Escherichia coli [E. coli]
CPT/HCPCS: 96365

== ENCOUNTER → 2019-03-19 10:11 | Outpatient (CLI) | payer MEDICARE, OTHER, SELFPAY ==
[2019-03-19 10:55] VITALS: BP 108/51; PULSE 61; RESP 18; TEMP 36.9; O2SAT 98
[2019-03-19 11:19] VITALS: BP 106/53; PULSE 65; RESP 18; TEMP 36.9; O2SAT 98
== END ==
PROVIDERS: PCP Family Medicine; Visit Provider Family Medicine
DX: N39.0 Urinary tract infection, site not specified (principal); A41.51 Sepsis due to Escherichia coli [E. coli]
CPT/HCPCS: 96365

== ENCOUNTER → 2019-03-20 10:31 | Outpatient (CLI) | payer MEDICARE, OTHER, SELFPAY ==
[2019-03-20 10:46] VITALS: BP 113/53; PULSE 68; RESP 18; TEMP 36.8; O2SAT 99
[2019-03-20 11:39] VITALS: BP 128/58; PULSE 65; RESP 18; TEMP 36.9; O2SAT 98
== END ==
PROVIDERS: PCP Family Medicine; Visit Provider Family Medicine
DX: N39.0 Urinary tract infection, site not specified (principal); A41.51 Sepsis due to Escherichia coli [E. coli]
CPT/HCPCS: 96365

== ENCOUNTER 2019-03-22 11:40 | Outpatient (CLI) | payer MEDICARE, OTHER, SELFPAY ==
[2019-03-22 11:50] VITALS: BP 118/61; PULSE 63; RESP 18; O2SAT 94
== END 2019-03-22 11:50 | disposition home or self-care (01) ==
LOC: INF 11:40
PROVIDERS: Visit Provider Family Medicine
DX: Z45.2 Encounter for adjustment and management of vascular access device (principal)
CPT/HCPCS: G0463

== ENCOUNTER → 2019-03-31 09:47 | Outpatient (CLI) | payer MEDICARE, OTHER, SELFPAY ==
--- NOTE | 2019-03-31 09:56 | XR_ITS ---
PROCEDURE: XR FOOT WT BEARING LT 3V CLINICAL INDICATION: fracture Follow-up fracture COMPARISON: XR FOOT LT MIN 3V from 03/07/2019 FINDINGS: Previously noted avulsion of the proximal intermetatarsal region of the 2nd 3rd metatarsals is not identified on today's study but could very well be obscured by overlapping bone. The fracture could also be healed. IMPRESSION: Negative left foot Dictated by: Bo Daniel MD 03/31/2019 13:14 Electronically signed by Bo Daniel MD in [place] 03/31/2019 13:14
== END ==
PROVIDERS: PCP Family Medicine; Visit Provider Podiatrist
DX: S92.325A Nondisplaced fracture of second metatarsal bone, left foot, initial encounter for closed fracture (principal)
CPT/HCPCS: 73630

== ENCOUNTER → 2019-05-02 09:42 | Outpatient (CLI) | payer MEDICARE, OTHER, SELFPAY ==
--- NOTE | 2019-05-02 09:45 | CA_ITS ---
APPROVED REPORT Bilateral Lower Extremity Venous Study for Lease Out Man: MARLINE Indications Lower Extremity Pain: pain ans swelling left lower extremity post trauma left foot Vein Imaging CFV (L): compressive, spontaneous, phasic, augmentation SFJ (L): compressive, spontaneous, phasic, augmentation FEM (L): compressive, spontaneous, phasic, augmentation POP (L): compressive, spontaneous, phasic, augmentation PTV (L): Compressible GSV (L): Compressible Peroneals (L):Compressible GAS (L): Compressible Findings No evidence of DVT or superficial thrombophlebitis in the veins scanned of the left lower extremity. Conclusion No evidence of DVT or superficial thrombophlebitis in the veins scanned of the left lower extremity. Electronically signed by : Bo Daniel MD 05/06/2019 07:36:17
== END ==
PROVIDERS: PCP Family Medicine; Visit Provider Podiatrist
DX: R60.0 Localized edema (principal)
CPT/HCPCS: 93971

== ENCOUNTER 2019-07-04 10:00 | Outpatient (RCR) | payer MEDICARE, OTHER, SELFPAY ==
--- NOTE | 2019-05-11 15:40 | HMH.PTOPEV ---
PT Outpatient Evaluation Rehab PT Outpatient Evaluation Start: 05/11/19 14:20 Freq: Status: Active Protocol: Document 05/11/19 14:22 JOANNEREECE (Rec: 05/11/19 15:28 [email or web address] [id number]) Electronically Signed By Robert Kwong PT 05/11/19 14:22 Outpatient Therapy Subjective History Subjective History This is the initial Physical Therapy evaluation for Jing Garg. Pt reports she dropped a TV tray on her foot at the end of February. Pt reports this caused a fx in her foot. Pt reports she has been in boot and is now transitioning to ankle brace. Chief Complaint Pain,Stiff,Weakness Symptom Type Ache,Throb,Sharp Symptoms Relieved By Rest/Positioning,Ice Symptoms Aggravated By Standing,Walking Prior Functional Limitations None Current Functional Limitations Housework,Standing,Recreation Activity,Walking Symptom Description Intermittent Level of pain today (0-10) 2 Pain scale - at its best (0-10) 0 Pain scale - at its worst (0-10) 10 Ankle/Foot Eval Gait Observation General Gait Pattern Observation Antalgic Gait,Decrease Weight Bear (L) Palpation Tenderness left Ankle/Foot Palpation Findings Tenderness Ankle/Foot Palpation Overall Comment TTP along metatarsals ROM bilateral Ankle/Foot ROM Reason Not Measured Within Functional Limits MMT left Ankle Dorsiflexion Strength Grade 4- Good- Ankle Plantarflexion Strength Grade 4- Good- Foot Eversion Strength Grade 4- Good- Foot Inversion Strength Grade 4- Good- Special Tests Ankle Anterior Drawer Test Negative Left Ankle Eversion Test Negative Left Talar Tilt Test Negative Left Ankle Inversion (supination) Test Negative Left Foot Compression Test Positive Left Foot Long Bone Compression Test Positive Left Outpatient Therapy Assessment Impairments Problems/Impairmments Palpation Tenderness,Impaired Strength,Impaired Walking, Impaired Standing,Impaired Recreational Activities, Subjective C/O Pain Prognosis Rehab Potential Fair Clinical Impression Consistent with Diagnosis Yes Short Term Goals Number of Weeks 2 Decreased Palpation Tenderness Yes Increase Strength Yes: 4/5 Increase Ability to Walk Yes: 20+ min Increase Ability to Stand Yes: 20+ min Decrease Subjective C/O Pain Yes: 01/19 Patient to be Ind w/ HEP
== END 2019-07-04 10:05 | disposition home or self-care (01) ==
LOC: PT 10:00
PROVIDERS: PCP Family Medicine; Visit Provider Podiatrist
DX: S92.325A Nondisplaced fracture of second metatarsal bone, left foot, initial encounter for closed fracture (principal)
CPT/HCPCS: 97010; 97014; 97110; 97163; 97164; G0283

== ENCOUNTER 2019-12-06 13:01 | Emergency (ER) | payer MEDICARE, OTHER, SELFPAY ==
[2019-12-06 13:24] VITALS: BP 128/72; PULSE 80; RESP 20; TEMP 36.8; O2SAT 98; BMI 17.7
--- NOTE | 2019-12-06 13:33 | HMH.EDUTC ---
[facility] [place] Disposition Clinical Impression: Vomiting and diarrhea Disposition: Home, Self-Care Condition on Discharge: Good Instructions: Diarrhea, Nausea and Vomiting-Adult Additional Instructions: ? Drink extra fluids with and between meals. If you have difficulty drinking, try very small amounts of water or suck on ice chips. ? Avoid fruit juices, as these do not replace minerals and can actually increase diarrhea. ? Children and adults can use sports drinks to replenish electrolytes. Younger children and infants should use products formulated for children, like oral rehydration solutions. ? Eat food in small amounts and let your stomach recover. ? Get lots of rest. You may feel tired or weak. ? No greasy or fried foods for the next 24-48 hours BRAT diet Bananas Rice Apples and [place] ? Make sure to drink plenty of liquids ? Return if needed ? Straight to ER if any life threatening symptoms ? Zofran as prescribed ? You was given an outpatient order for diarrhea panel, please collect specimen and bring back to outpatient lab then call back to the [facility] or follow up with family doctor for results ? Follow up with family doctor in the next 48-72 hours if no improvement or any worsening of symptoms Prescriptions: Ondansetron [Zofran 4mg ODT] 4 mg PO Q8HP PRN #10 tab.rapdis PRN Reason: Nausea Transmission Status: Pending to [facility] Referrals: Chinedu Cantu MD [Primary Care Provider] - As needed Time of Disposition: 14:17 Medical Decision Making - [place] Inquiry Pt receiving controlled substance: No [place] was queried for this patient: No Vital Signs: 12/06/19 13:24 Temperature 98.2 F Temperature Source Oral Pulse Rate [Right Brachial] 80 Respiratory Rate 20 Blood Pressure [Right Arm] 128/72 Blood Pressure Mean [Right Arm] 90 Blood Pressure Source [Right Arm] Automatic Cuff Blood Pressure Position [Right Arm] Sitting 02 Sat by Pulse Oximetry 98 Oxygen Delivery Method Room Air - Reevaluation(s) Time: 14:01 Reevaluation #1: Patient resting on exam table with Normal Saline Bolus infusing patient tolerating well, no diarrhea or vomiting since arrival Time: 14:15 Reevaluation #3: No vomiting or diarrhea since arrival patient states that she is feeling better after bolus and no longer feels like her mouth is dry [facility] [place] HPI - General Stated complaint: v/d Time Seen by Provider: 12/06/19 13:33 Mode of Arrival: Ambulatory Source of Information: Patient Limitations: No Limitations Description of Symptoms (Recalled from Triage Doc. by RN): PATIENT C/O VOMITING AND DIARRHEA X 4 DAYS HEENT Symptoms (Recalled from RN notes): No Resp Symptoms (Recalled from RN notes): No Skin Symptoms (Recalled from RN notes): No MS Symptoms (Recalled from RN notes): No Functional Status (Recalled from RN notes): WNL - History of Present Illness Provider Complaint: Patient states that she has been having vomiting and diarrhea on and off since Thursday States that she was worried that she may get dehydrated States that she is feeling better today and not had any vomiting or diarrhea but has had some nausea so she came in - Related Data Home Medications Medication Instructions Recorded Confirmed Amlodipine Besylate 10 mg PO DAILY 03/07/19 08/08/19 Clopidogrel Bisulfate [Plavix 75mg 75 mg PO DAILY 03/07/19 08/08/19 Tab] Colestipol HCl 1 gm PO BID 03/07/19 08/08/19 Esomeprazole Magnesium 40 mg PO DAILY 03/07/19 08/08/19 Ezetimibe 10 mg PO HS 03/07/19 08/08/19 Levothyroxine Sodium 88 mcg PO DAILY 03/07/19 08/08/19 [Levothyroxine 88mcg (0.088mg) Tab] Metoprolol Succinate 25 mg PO DAILY 03/07/19 08/08/19 Rosuvastatin Calcium 40 mg PO HS 03/07/19 08/08/19 Ubidecarenone [Coq-10] 200 mg PO DAILY 03/07/19 08/08/19 hydroCHLOROthiazide [HCTZ 25mg 25 mg PO DAILY 03/07/19 08/08/19 tab] Multivit-Min/Iron/Folic/Lutein 1 each PO DAILY 03/16/19 08/08/19 [Centrum Silver Women Tablet] Alirocumab [Praluent Pen] 75
[2019-12-06 14:23] VITALS: BP 128/72; PULSE 80; RESP 20; TEMP 36.8; O2SAT 98
== END 2019-12-06 14:30 | disposition home or self-care (01) ==
PROVIDERS: Emergency Provider Nurse Practitioner; PCP Family Medicine
DX: R11.10 Vomiting, unspecified (principal); R19.7 Diarrhea, unspecified; I25.10 Atherosclerotic heart disease of native coronary artery without angina pectoris; I10 Essential (primary) hypertension; E78.5 Hyperlipidemia, unspecified; K21.9 Gastro-esophageal reflux disease without esophagitis; I25.2 Old myocardial infarction; E03.9 Hypothyroidism, unspecified; Z95.1 Presence of aortocoronary bypass graft; F17.210 Nicotine dependence, cigarettes, uncomplicated; Z88.8 Allergy status to other drugs, medicaments and biological substances; Z79.899 Other long term (current) drug therapy
CPT/HCPCS: G0463; 96365; 99201

== ENCOUNTER → 2019-12-09 09:56 | Outpatient (CLI) | payer MEDICARE, OTHER, SELFPAY ==
[2019-12-09 10:00] LABS: Adenovirus F 40/41, stool Not Detected (NotDetected); Astrovirus Not Detected (NotDetected); Campylobacter Not Detected (NotDetected); Clostridium Difficile A/B, PCR Not Detected (NotDetected); Cyclospora Cayetanesis Not Detected (NotDetected); Entamoeba histolytica Not Detected (NotDetected); Enteroaggregative E coli Not Detected (NotDetected); Enteropathogenic E coli Not Detected (NotDetected); Enterotoxigenic E coli Not Detected (NotDetected); Giardia lamblia Not Detected (NotDetected); Norovirus Not Detected (NotDetected); Plesimonas Shigalloides, PCR Not Detected (NotDetected); Rotavirus A Not Detected (NotDetected); Salmonella, PCR Not Detected (NotDetected); Sapovirus Not Detected (NotDetected); Shiga-like toxin E coli Not Detected (NotDetected); Shigella Enterovasive E coli Not Detected (NotDetected); Vibrio Cholerae Not Detected (NotDetected); Vibrio, PCR Not Detected (NotDetected); Yersinia Entercolitica, PCR Not Detected (NotDetected)
[2019-12-09 13:17] LABS: Cryptosporidium Detected (NotDetected)
== END ==
PROVIDERS: Visit Provider Nurse Practitioner
DX: R19.7 Diarrhea, unspecified (principal); A07.2 Cryptosporidiosis
CPT/HCPCS: 87506

== ENCOUNTER → 2020-05-05 12:02 | Outpatient (CLI) | payer MEDICARE, OTHER, SELFPAY ==
[2020-05-05 14:34] LABS: Coronavirus 19 IgG Antibody Negative (Negative); Coronavirus 19 IgM Antibody Negative (Negative)
== END ==
PROVIDERS: Visit Provider Internal Medicine Gastroenterology
DX: Z01.818 Encounter for other preprocedural examination (principal); Z13.810 Encounter for screening for upper gastrointestinal disorder
CPT/HCPCS: 36415; 86328

== ENCOUNTER 2020-05-07 09:13 | Day surgery (SDC) | payer MEDICARE, OTHER, SELFPAY ==
[2020-05-01 13:00] VITALS: BMI 18.5
[2020-05-07] VITALS (7 sets, daily range): BP systolic 80–138; BP diastolic 43–85; PULSE 57–72; RESP 16–18; TEMP 36.2–36.7; O2SAT 96–100
--- NOTE | 2020-05-07 10:28 | P.PN_ITS ---
[facility] Anesthesia Checklist - Patient Identification Patient Identification: Arm Band - Structural Data Admitted From: Home Planned Operative Procedure/s: egd Consent for Planned Operative Procedure(s) Verified: Yes Verified Documents: Surgical Consent, History and Physical - NPO Status Verified Time NPO: 00:00 - Additional verifications Anesthesia Reactions: No - Airway Assessment C-Spine Mobility Assessed: Yes (mp2) TMJ Mobility Assessed: Yes Dentition: Dentures-good fit - Neurological Assessment Level of Consciousness: Awake, Alert - Anesthesia Plan Anesthesia Risk discussed: Yes Anesthesia Plan: Verified ASA Class: III Anesthesia Type: MAC [facility] History I have reviewed the patient's past medical history: Yes Medical History: Reports:: Cancer, Coronary Artery Disease, Gastroesophageal Reflux Disease(GERD), Hyperlipidemia, Hypertension, Myocardial Infarction Denies:: Diabetes Mellitus Type 1, Diabetes Mellitus Type 2, Internal Pacemaker, MRSA, Seizures *Have you ever received a pneumonia vaccine?: Yes *Have you received a flu vaccine this season?: No Other Medical History: Reports: Hypothyroidism, Radiation Therapy, Thyroid Disease Anesthesia experience/problems:: nac Laterality Cases: Left: Other Other Surgeries: Yes: CABG, Cardiac Catheterization, Colonoscopy, Coronary Stent, Hysterectomy-Total, Open Heart Surgery, Thyroidectomy. No: Pacemaker Amputation: No Fractures: No - *Social History Smoking Status: Current every day smoker Tobacco Type: cigarettes # Packs/Day (cigarettes): 50 #Yrs smoked (if former smoker): 1 Alcohol Intake: never Alcohol Intake Frequency:: holidays/special occasions only Substance Use Type: denies use *Occupational Status:: other Housing: house Household Members: none *Travel in the last 8 weeks: None Family Hx:: Coronary Artery Disease, Hypertension
--- NOTE | 2020-05-07 10:43 | HMH.PROC ---
[facility] Procedure Note Procedure Note:: Upper Endoscopy Procedure Report: Esophagogastroduodenoscopy with cold biopsies and TTS balloon dilation Endoscopost: Rolando Mock II, MD Referring Physician: Chinedu Cantu MD Date of Procedure: May 07, 2020 Equipment: Olympus GIF 180 standard upper endoscope Sedation: MAC sedation Indications: Mrs. Garg is a 74-year-old female who received a flu shot vaccine at the pharmacy and then developed some nausea, vomiting and diarrhea. She felt better the following day but 2 days later (Thursday evening), she ate potato soup and felt hot. She had syncope. When she awakened she had more significant lower abdominal cramps, diarrhea with dark blood and clots. She was on Plavix. Her last colonoscopy was 2014 (Dr. Korey Alford in [place]). She does have a history of diverticulosis and collagenous colitis. The patient has had mostly resolution of the symptoms but does get some gassiness and belching. She reports some dyspepsia with mid upper abdominal discomfort. She is on Nexium but does get some gastroesophageal reflux. She has had no dysphagia since thyroidectomy or thyroid cancer surgery. She often feels as if she gets gas pockets with discomfort that radiates between her shoulder blades. Procedure: Prior to the procedure, a history and physical exam was performed, and patient's medications and allergies were reviewed. The risks, benefits and alternatives of the sedation and procedure were discussed with the patient. All questions were answered and informed consent was obtained. The patient was brought to the procedure room. Patient identification and proposed procedure were verified by the physician and the nurse. The patient was placed in a left lateral decubitus position and the scope was passed under direct vision. Throughout the procedure, the patient's blood pressure, pulse, and oxygen saturations were monitored continuously. The upper GI endoscopy was accomplished without difficulty. The patient tolerated the procedure well. Findings: The scope was passed directly into the upper esophagus and advanced to the third portion of the duodenum. The post bulbar duodenum and duodenal bulb were normal with normal mucosa and conniventes. The scope was withdrawn through a normal duodenal bulb and pylorus into the stomach. There was linear reactive gastropathy of the antrum and body of the stomach. The remainder of the antrum, body and fundus of the stomach were grossly normal. Upon retroflexion there was no hiatal hernia. 2 biopsies were taken in the antrum and along the lesser curvature for histology to rule out gastritis and/or H pylori. The scope was then withdrawn into the esophagus. There was a serrated Z-line minimally. There were tertiary contractions and mild esophageal dysmotility. The entire esophagus was dilated to 60 [place]/20 mm with a TTS hydrostatic balloon with some resistance at the cricopharyngeus. The remainder of the esophageal mucosa was normal. Impression: 1. Nonerosive GERD with mild esophageal dysmotility and cricopharyngeal spasm 2. Linear reactive gastropathy Plan: I will follow-up the biopsies. 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 I do not think that her bleeding, cramps and diarrhea were related to the upper endoscopic findings. I suspect that she had syncope with hypotension leading to some colonic ischemia (watershed region) with ischemic colitis. I will discuss the findings with the patient and family.
== END 2020-05-07 11:48 | disposition home or self-care (01) ==
LOC: OUTP 09:15
PROVIDERS: PCP Family Medicine; Visit Provider Internal Medicine Gastroenterology
PROC: 0DJ08ZZ Inspection of Upper Intestinal Tract, Via Natural or Artificial Opening Endoscopic (ICD-10-PCS; CPT 43235; principal; 2020-05-07 10:30)
DX: J39.2 Other diseases of pharynx (principal); K31.9 Disease of stomach and duodenum, unspecified; K21.9 Gastro-esophageal reflux disease without esophagitis; K22.4 Dyskinesia of esophagus; Z79.02 Long term (current) use of antithrombotics/antiplatelets; Z87.19 Personal history of other diseases of the digestive system; Z85.9 Personal history of malignant neoplasm, unspecified; E89.0 Postprocedural hypothyroidism; I25.10 Atherosclerotic heart disease of native coronary artery without angina pectoris; E78.5 Hyperlipidemia, unspecified; I10 Essential (primary) hypertension; I25.2 Old myocardial infarction
CPT/HCPCS: 43239; 43249; 88305; C1726

== ENCOUNTER 2020-05-20 11:12 | Emergency (ER) | payer MEDICARE, OTHER, SELFPAY ==
[2020-05-20 11:40] VITALS: BP 128/75; PULSE 66; RESP 20; TEMP 37.1; O2SAT 99; BMI 18.5
--- NOTE | 2020-05-20 11:57 | HMH.EDUTC ---
[facility] [place] Clinical Impression: Exposure to COVID-19 virus Disposition: Home, Self-Care Condition on Discharge: Good Instructions: Preventing the Spread of Coronavirus Discharge Instructions Additional Instructions: No sign of a bacterial infection. Likely viral. Viruses can take 7-14 days to run their course. Nasal saline and bulb syringe or nose Camila to remove nasal drainage to help with nasal congestion. Hard to eat, drink, sleep with nasal congestion so important to keep this cleaned out. Monitor temp. Tylenol or Motrin as needed for pain or fever Encourage fluids, water, Gatorade, Powerade, Pedialyte if /toddler/child Warm salt water gargles Warm fluids Sore throat lozenges Sleep elevated Humidifier/vaporizer Your covid swab was sent. These results are typically sent to the primary care. Be sure you follow-up in 2-3 days if no improvement so we can review the results and treat if necessary. self isolate until test results are known Follow-up immediately for new or worsening symptoms or no noticeable improvement over the next 48-72 hours. Referrals: Chinedu Cantu MD [Primary Care Provider] - Time of Disposition: 12:00 Medical Decision Making - [place] Inquiry Pt receiving controlled substance: No Vital Signs: 05/20/20 11:40 Temperature 98.8 F Temperature Source Oral Pulse Rate [Right Brachial] 66 Respiratory Rate 20 Blood Pressure [Right Arm] 128/75 Blood Pressure Mean [Right Arm] 92 Blood Pressure Source [Right Arm] Automatic Cuff Blood Pressure Position [Right Arm] Sitting 02 Sat by Pulse Oximetry 99 Oxygen Delivery Method Room Air Orders (Tests/Meds): ORDERS Category Date Time Status Covid-19 Nasal PCR ([facility]) Routine Lab 05/20/20 11:55 Ordered [facility] [place] HPI - General Chief complaint: Urgent [facility] Stated complaint: covid test Time Seen by Provider: 05/20/20 11:57 Mode of Arrival: Ambulatory Source of Information: Patient Limitations: No Limitations Description of Symptoms (Recalled from Triage Doc. by RN): PATIENT REQUESTING COVID TEST D/T EXPOSURE; DENIES SYMPTOMS HEENT Symptoms (Recalled from RN notes): No Resp Symptoms (Recalled from RN notes): No Skin Symptoms (Recalled from RN notes): No MS Symptoms (Recalled from RN notes): No Functional Status (Recalled from RN notes): WNL - History of Present Illness Provider Complaint: 74 yr old female presents for covid test. pt states no symptoms, but has been exposed. - Related Data Home Medications Medication Instructions Recorded Confirmed Amlodipine Besylate 10 mg PO DAILY 03/07/19 05/07/20 Clopidogrel Bisulfate [Plavix 75mg 75 mg PO DAILY 03/07/19 05/07/20 Tab] Colestipol HCl 1 gm PO BID 03/07/19 05/07/20 Esomeprazole Magnesium 40 mg PO DAILY 03/07/19 05/07/20 Ezetimibe 10 mg PO HS 03/07/19 05/07/20 Levothyroxine Sodium 88 mcg PO DAILY 03/07/19 05/07/20 [Levothyroxine 88mcg (0.088mg) Tab] Metoprolol Succinate 25 mg PO DAILY 03/07/19 05/07/20 Rosuvastatin Calcium 40 mg PO HS 03/07/19 05/07/20 Ubidecarenone [Coq-10] 200 mg PO DAILY 03/07/19 05/07/20 hydroCHLOROthiazide [HCTZ 25mg 25 mg PO DAILY 03/07/19 05/07/20 tab] Multivit-Min/Iron/Folic/Lutein 1 each PO DAILY 03/16/19 05/07/20 [Centrum Silver Women Tablet] Alirocumab [Praluent Pen] 75 mg SQ DIRECTED 03/18/19 05/07/20 potassium chloride 20 mEq 20 meq PO DAILY #30 03/31/19 05/07/20 tablet,extended release(part/cryst) Azithromycin [Z-Gamaliel 250mg Tab] 250 mg PO DIRECTED 05/01/20 05/07/20 Previous Rx's Medication Instructions Recorded Hydrocodone/Acetaminophen [[place] 1 tab PO TID PRN 3 Days #10 tab 03/07/19 7.5-325 Tablet] ciclopirox 8 % topical solution 1 applic TOPICAL QHS 28 Days #6.6 03/31/19 ml diclofenac sodium 1 % topical gel 4 g TOPICAL QID PRN #30 g 04/05/19 Ondansetron [Zofran 4mg ODT] 4 mg PO Q8HP PRN #10 tab.rapdis 12/06/19 Allergies Allergy/AdvReac Type Severity Reaction Status Date
[2020-05-20 12:04] VITALS: BP 128/75; PULSE 66; RESP 20; TEMP 37.1; O2SAT 99
== END 2020-05-20 12:07 | disposition home or self-care (01) ==
PROVIDERS: Emergency Provider Nurse Practitioner Family; PCP Family Medicine
DX: Z20.828 Contact with and (suspected) exposure to other viral communicable diseases (principal)
CPT/HCPCS: G0463; 99201; U0003

== ENCOUNTER → 2020-05-29 15:46 | Outpatient (CLI) | payer MEDICARE, OTHER, SELFPAY ==
[2020-05-29 16:52] LABS: Basophils % 0.2 % (0.1-2.0); Eosinophils % 0.1 % (0.1-12.0); Hematocrit 40.4 % (37.0-47.0); Lymphocytes # 2.6 K/mm3 (0.7-4.5); Lymphocytes % 14.8 % (10-50); Mean Corpuscular HGB Conc 32.2 g/dL (31.8-35.4); Mean Corpuscular Hemoglobin 31.2 pg (27.0-31.2); Mean Corpuscular Volume 96.9 fl (81-99); Mean Platelet Volume 7.4 fl (7.4-10.4); Monocytes # 1.1 K/mm3 (0.1-1.0); Monocytes % 5.9 % (1.7-9.3); Neutrophils # 14.2 K/mm3 (1.8-7.8); Platelet Count 243 K/mm3 (142-424); Red Blood Count 4.17 M/mm3 (4.20-5.40); Red Cell Distribution Width 12.6 % (11.5-17.5)
[2020-05-29 17:08] LABS: Chloride 102 mmol/L (98-107); Sodium 135 mmol/L (136-145)
[2020-05-29 17:11] LABS: Alanine Aminotransferase 19 U/L (12-78); Albumin Level 4.1 g/dl (3.5-5.0); Albumin/Globulin Ratio 1.3 (1.1-1.8); Alkaline Phosphatase 93 U/L (38-126); Aspartate Amino Transferase 26 U/L (14-36); Bilirubin,Total 0.6 mg/dl (0.2-1.3); Blood Urea Nitrogen 27 mg/dl (7-17); Calcium 9.4 mg/dl (8.4-10.2); Carbon Dioxide 20 mmol/L (22.0-30.0); Estimated Glomerular Filt Rate 44 ml/min (>60); GFR (African American) 53 ML/MIN (>60); Globulin 3.2 g/dL (1.3-3.2); Glucose 83 mg/dl (74-100); Total Protein,Serum 7.3 g/dl (6.3-8.2)
[2020-05-29 17:16] LABS: MANUAL DIFFERENTIAL MANUAL DIFFERENTIAL (MANUAL DIFF)
[2020-05-29 23:35] LABS: Lymphocytes % 16 % (10-50); Monocytes % 8 % (2-9); Neutrophils % 76 % (42-76); Platelet Estimate Normal; RBC Morphology Normal; Total Cells Counted 100
== END ==
PROVIDERS: PCP Family Medicine; Visit Provider Family Medicine
DX: Z03.818 Encounter for observation for suspected exposure to other biological agents ruled out (principal)
CPT/HCPCS: 36415; 80053; 85007; 85025; U0003

== ENCOUNTER → 2020-10-15 14:41 | Outpatient (CLI) | payer MEDICARE, OTHER, SELFPAY ==
[2020-10-15 17:12] LABS: Alanine Aminotransferase 25 U/L (12-78); Albumin Level 4.5 g/dl (3.5-5.0); Alkaline Phosphatase 113 U/L (38-126); Aspartate Amino Transferase 29 U/L (14-36); Bilirubin,Direct 0.1 mg/dl (0.0-0.4); Bilirubin,Indirect 0.4 mg/dL (0.0-0.9); Bilirubin,Total 0.5 mg/dl (0.2-1.3); Bilirubin,Unconjugated 0.5 mg/dL (0.0-1.1); Chol/HDL Ratio 2.2 (1-3.5); Cholesterol 116 mg/dl (140-200); HDL Cholesterol 53 mg/dl (40-60); Total Protein,Serum 7.4 g/dl (6.3-8.2); Triglycerides 102 mg/dl (30-150); VLDL Cholesterol 20 mg/dL (0-40)
[2020-10-15 17:24] LABS: Direct LDL Cholesterol 43.23 mg/dL (100-129)
== END ==
PROVIDERS: Visit Provider Internal Medicine Interventional Cardiology
DX: E78.00 Pure hypercholesterolemia, unspecified (principal)
CPT/HCPCS: 36415; 80061; 80076

== ENCOUNTER → 2021-01-07 06:41 | Outpatient (CLI) | payer MEDICARE, OTHER, SELFPAY ==
[2021-01-07 07:55] LABS: Basophils # 0.1 K/mm3 (0-0.2); Basophils % 0.7 % (0.1-2.0); Eosinophils # 0.5 K/mm3 (0.0-0.4); Eosinophils % 4.3 % (0.1-12.0); Hematocrit 38.3 % (37.0-47.0); Hemoglobin 12.8 g/dL (12.2-16.2); Lymphocytes # 3.9 K/mm3 (0.7-4.5); Mean Corpuscular HGB Conc 33.5 g/dL (31.8-35.4); Mean Corpuscular Hemoglobin 30.8 pg (27.0-31.2); Mean Platelet Volume 7.7 fl (7.4-10.4); Monocytes # 0.7 K/mm3 (0.1-1.0); Monocytes % 6.1 % (1.7-9.3); Neutrophils # 5.9 K/mm3 (1.8-7.8); Neutrophils % 53.9 % (37.0-80.0); Platelet Count 246 K/mm3 (142-424); Red Blood Count 4.16 M/mm3 (4.20-5.40)
[2021-01-07 07:59] LABS: Chloride 107 mmol/L (98-107); Potassium 4.8 mmoL/L (3.5-5.1); Sodium 141 mmol/L (136-145)
[2021-01-07 08:02] LABS: Anion Gap 12.8 mEq/L (5-15); Blood Urea Nitrogen 31 mg/dl (7-17); Calcium 9.5 mg/dl (8.4-10.2); Carbon Dioxide 26 mmol/L (22.0-30.0); Estimated Glomerular Filt Rate 61 ml/min (>60); GFR (African American) 74 ML/MIN (>60); Glucose 116 mg/dl (74-100); Iron 58 ug/dL (37-170)
[2021-01-07 08:34] LABS: Thyroid Stimulating Hormone 0.29 uIU/mL (0.465-4.68)
[2021-01-07 08:54] LABS: Free T4 (Free Thyroxine) 1.83 ng/dl (0.78-2.19)
[2021-01-07 09:40] LABS: Vitamin B12 347 pg/mL (239-931)
[2021-01-07 10:17] LABS: 25-OH Vitamin D, Total 49.3 ng/mL (30-100)
[2021-01-08 09:46] LABS: Triiodothyronine (T3) Total 89 ng/dL (71-180)
== END ==
PROVIDERS: PCP Family Medicine; Visit Provider Physician Assistant
DX: R53.83 Other fatigue (principal); R53.1 Weakness
CPT/HCPCS: 36415; 80048; 82306; 82607; 83540; 84439; 84443; 84480; 85025

== ENCOUNTER → 2022-01-02 09:39 | Outpatient (CLI) | payer MEDICARE, OTHER, SELFPAY ==
[2022-01-02 11:10] LABS: Alanine Aminotransferase 44 U/L (12-78); Albumin Level 4.2 g/dl (3.5-5.0); Alkaline Phosphatase 156 U/L (38-126); Anion Gap 11.9 mEq/L (5-15); Aspartate Amino Transferase 39 U/L (14-36); Bilirubin,Indirect 0.3 mg/dL (0.0-0.9); Bilirubin,Total 0.3 mg/dl (0.2-1.3); Bilirubin,Unconjugated 0.6 mg/dL (0.0-1.1); Blood Urea Nitrogen 26 mg/dl (7-17); Calcium 10.2 mg/dl (8.4-10.2); Carbon Dioxide 26 mmol/L (22.0-30.0); Chloride 109 mmol/L (98-107); Chol/HDL Ratio 1.8 (1-3.5); Cholesterol 77 mg/dl (140-200); Estimated Glomerular Filt Rate 54 ml/min (>60); GFR (African American) 66 ML/MIN (>60); Glucose 104 mg/dl (74-100); HDL Cholesterol 42 mg/dl (40-60); Potassium 4.9 mmoL/L (3.5-5.1); Sodium 142 mmol/L (136-145); Total Protein,Serum 7.4 g/dl (6.3-8.2); Triglycerides 86 mg/dl (30-150); VLDL Cholesterol 17 mg/dL (0-40)
[2022-01-02 11:31] LABS: Direct LDL Cholesterol < 30.00 mg/dL (100-129)
== END ==
PROVIDERS: PCP Family Medicine; Visit Provider Internal Medicine Interventional Cardiology
DX: E78.00 Pure hypercholesterolemia, unspecified (principal)
CPT/HCPCS: 36415; 80048; 80061; 80076

== ENCOUNTER → 2022-02-15 11:09 | Outpatient (CLI) | payer MEDICARE, OTHER, SELFPAY ==
--- NOTE | 2022-02-15 11:18 | XR_ITS ---
PROCEDURE INFORMATION: Exam: XR Chest Exam date and time: 02/15/2022 11:19 AM Age: 76 years old Clinical indication: Sternal or substernal pain; Additional info: Incision from previous heart surgery gets irritated and hurts TECHNIQUE: Imaging protocol: Radiologic exam of the chest. Views: 2 views. COMPARISON: CR XR CHEST 2V 07/12/2019 10:41 AM FINDINGS: Lungs: Unremarkable. No consolidation. Pleural spaces: Unremarkable. No pleural effusion. No pneumothorax. Heart/Mediastinum: Changes of prior CABG. Vasculature: A stent projects over the region of the great vessels. Bones/joints: Unremarkable. IMPRESSION: No acute cardiopulmonary abnormality.
== END ==
PROVIDERS: Visit Provider Internal Medicine Interventional Cardiology
DX: R07.89 Other chest pain (principal)
CPT/HCPCS: 71046

== ENCOUNTER → 2022-05-08 09:28 | Outpatient (CLI) | payer MEDICARE, OTHER, SELFPAY ==
[2022-05-08 10:22] LABS: Alanine Aminotransferase 74 U/L (12-78); Albumin Level 4.1 g/dl (3.5-5.0); Alkaline Phosphatase 142 U/L (38-126); Aspartate Amino Transferase 48 U/L (14-36); Bilirubin,Direct 0.1 mg/dl (0.0-0.4); Bilirubin,Indirect 0.3 mg/dL (0.0-0.9); Bilirubin,Total 0.4 mg/dl (0.2-1.3); Bilirubin,Unconjugated 0.3 mg/dL (0.0-1.1); Cholesterol 157 mg/dl (140-200); HDL Cholesterol 53 mg/dl (40-60); Total Protein,Serum 7.3 g/dl (6.3-8.2); Triglycerides 134 mg/dl (30-150); VLDL Cholesterol 27 mg/dL (0-40)
[2022-05-08 10:33] LABS: Direct LDL Cholesterol 71.51 mg/dL (100-129)
== END ==
PROVIDERS: Visit Provider Internal Medicine Interventional Cardiology
DX: E78.00 Pure hypercholesterolemia, unspecified (principal)
CPT/HCPCS: 36415; 80061; 80076

== ENCOUNTER → 2022-09-20 14:36 | Outpatient (CLI) | payer MEDICARE, SELFPAY ==
[2022-09-20 15:38] LABS: Alanine Aminotransferase 38 U/L (12-78); Alkaline Phosphatase 105 U/L (38-126); Aspartate Amino Transferase 31 U/L (14-36); Bilirubin,Direct 0.2 mg/dl (0.0-0.4); Bilirubin,Indirect 0.4 mg/dL (0.0-0.9); Bilirubin,Total 0.6 mg/dl (0.2-1.3); Bilirubin,Unconjugated 0.4 mg/dL (0.0-1.1); Cholesterol 77 mg/dl (140-200); Triglycerides 68 mg/dl (30-150); VLDL Cholesterol 14 mg/dL (0-40)
[2022-09-20 15:39] LABS: Albumin Level 4.1 g/dl (3.5-5.0); Chol/HDL Ratio 1.4 (1-3.5); HDL Cholesterol 54 mg/dl (40-60)
[2022-09-20 15:55] LABS: Direct LDL Cholesterol < 30.00 mg/dL (100-129)
== END ==
PROVIDERS: Visit Provider Internal Medicine Interventional Cardiology
DX: E78.00 Pure hypercholesterolemia, unspecified (principal)
CPT/HCPCS: 36415; 80061; 80076

== ENCOUNTER → 2023-01-20 14:30 | Outpatient (CLI) | payer MEDICARE, SELFPAY ==
--- NOTE | 2023-01-20 14:39 | XR_ITS ---
FINAL REPORT CLINICAL HISTORY: cough, COPD exacerbation COMPARISON: 02/15/2022 FINDINGS: Two views of the chest were obtained. The heart size and pulmonary vascularity are within normal limits. The patient is status post median sternotomy. No acute pulmonary abnormality is identified. There is no pneumothorax. The bony thorax is intact. IMPRESSION: No active cardiopulmonary disease. Reviewed, Interpreted and Dictated by Korey Ochoa III, MD Transcribed by Joshua Gilmore Authenticated and [facility]
[2023-01-20 18:52] LABS: Basophils # 0.1 K/mm3 (0-0.2); Basophils % 0.5 % (0.1-2.0); Eosinophils # 1.7 K/mm3 (0.0-0.4); Eosinophils % 17.1 % (0.1-12.0); Hematocrit 45.2 % (37.0-47.0); Hemoglobin 13.7 g/dL (12.2-16.2); Lymphocytes # 2.9 K/mm3 (0.7-4.5); Lymphocytes % 28.8 % (10-50); Mean Corpuscular HGB Conc 30.4 g/dL (31.8-35.4); Mean Corpuscular Hemoglobin 30.1 pg (27.0-31.2); Mean Corpuscular Volume 99.1 fl (81-99); Mean Platelet Volume 8.6 fl (7.4-10.4); Monocytes # 0.6 K/mm3 (0.1-1.0); Monocytes % 5.9 % (1.7-9.3); Neutrophils # 4.8 K/mm3 (1.8-7.8); Neutrophils % 47.7 % (37.0-80.0); Platelet Count 266 K/mm3 (142-424); Red Blood Count 4.56 M/mm3 (4.20-5.40); Red Cell Distribution Width 12.7 % (11.5-17.5); White Blood Count 10.1 K/mm3 (4.8-10.8)
[2023-01-20 18:53] LABS: Alanine Aminotransferase 21 U/L (12-78); Albumin Level 4.2 g/dl (3.5-5.0); Albumin/Globulin Ratio 1.2 (1.1-1.8); Alkaline Phosphatase 198 U/L (38-126); Anion Gap 11.5 mEq/L (5-15); Aspartate Amino Transferase 29 U/L (14-36); Bilirubin,Total 0.5 mg/dl (0.2-1.3); Blood Urea Nitrogen 21 mg/dl (7-17); Calcium 10.1 mg/dl (8.4-10.2); Carbon Dioxide 29 mmol/L (22.0-30.0); Chloride 109 mmol/L (98-107); Chol/HDL Ratio 2.1 (1-3.5); Cholesterol 102 mg/dl (140-200); Estimated Glomerular Filt Rate 70 ml/min (>60); GFR (African American) 85 ML/MIN (>60); Globulin 3.4 g/dL (1.3-3.2); Glucose 100 mg/dl (74-100); HDL Cholesterol 49 mg/dl (40-60); Potassium 5.5 mmoL/L (3.5-5.1); Sodium 144 mmol/L (136-145); Total Protein,Serum 7.6 g/dl (6.3-8.2); Triglycerides 109 mg/dl (30-150); VLDL Cholesterol 22 mg/dL (0-40)
[2023-01-20 19:04] LABS: Direct LDL Cholesterol 35.19 mg/dL (100-129)
[2023-01-20 19:23] LABS: Thyroid Stimulating Hormone < 0.02 uIU/mL (0.465-4.68)
[2023-01-20 20:33] LABS: Creatinine,Urine Random 93 mg/dL (Not Estab.)
[2023-01-20 22:10] LABS: Microalbumin/Creatinine Ratio 755.1
== END ==
LOC: LAB 14:36 → LAB.DROPOF 14:39
PROVIDERS: PCP Nurse Practitioner; Visit Provider Nurse Practitioner
DX: I25.10 Atherosclerotic heart disease of native coronary artery without angina pectoris; I10 Essential (primary) hypertension; J44.1 Chronic obstructive pulmonary disease with (acute) exacerbation; R05.9 Cough, unspecified; E78.5 Hyperlipidemia, unspecified; E89.0 Postprocedural hypothyroidism; J44.9 Chronic obstructive pulmonary disease, unspecified
CPT/HCPCS: 71046; 80053; 80061; 82043; 82570; 84443; 85025

== ENCOUNTER → 2023-01-29 13:21 | Outpatient (CLI) | payer MEDICARE, SELFPAY ==
--- NOTE | 2023-01-29 13:21 | CT_ITS ---
FINAL REPORT TECHNIQUE: Axial images were obtained from the lung apex to the mid abdomen by computed tomography. This study was performed with techniques to keep radiation doses as low as reasonably achievable (ALARA). Individualized dose reduction techniques using automated exposure control or adjustment of mA and/or kV according to the patient's size were employed. CLINICAL HISTORY: lung cancer screening, 3 cigarettes per day , smoker for 59 years COMPARISON: 03/10/2019 FINDINGS: CHEST CT LOW DOSE CTDI vol (mGy): 2.90 DLP (mGy-cm): 96.38 There is prominent coronary artery calcification. There is no axillary adenopathy. There is no hilar or mediastinal adenopathy. The heart is normal in size. There is no pericardial or pleural effusion. There is a 4 mm right lower lobe nodule well seen on image 44. Finding has been stable since 2019. There is evidence of old granulomatous disease. Limited images of the upper abdomen reveals a hypodense lesion in the liver which is stable, favor a cyst. IMPRESSION: Lung RADS category 1. Recommend 12 month follow-up low-dose chest CT. Modifier S: Significant coronary artery calcification. Reviewed, Interpreted and Dictated by Maria Luisa Sloan MD Transcribed by Imelda Bolton Authenticated and . [facility]
== END ==
PROVIDERS: PCP Nurse Practitioner; Visit Provider Nurse Practitioner
DX: Z87.891 Personal history of nicotine dependence (principal); Z12.2 Encounter for screening for malignant neoplasm of respiratory organs
CPT/HCPCS: 71271

== ENCOUNTER → 2023-02-10 08:11 | Outpatient (CLI) | payer MEDICARE, SELFPAY | PROVIDERS: PCP Nurse Practitioner; Visit Provider Nurse Practitioner | DX: E87.5 Hyperkalemia (principal) ==

== ENCOUNTER → 2023-02-13 19:18 | Outpatient (CLI) | payer MEDICARE, SELFPAY ==
[2023-02-13 19:58] LABS: Anion Gap 13.3 mEq/L (5-15); Blood Urea Nitrogen 25 mg/dl (7-17); Calcium 9.5 mg/dl (8.4-10.2); Carbon Dioxide 27 mmol/L (22.0-30.0); Chloride 110 mmol/L (98-107); Estimated Glomerular Filt Rate 70 ml/min (>60); GFR (African American) 85 ML/MIN (>60); Glucose 78 mg/dl (74-100); Potassium 4.3 mmoL/L (3.5-5.1); Sodium 146 mmol/L (136-145)
== END ==
PROVIDERS: PCP Nurse Practitioner; Visit Provider Nurse Practitioner
DX: E87.5 Hyperkalemia (principal)
CPT/HCPCS: 80048

== ENCOUNTER → 2023-03-13 08:00 | Outpatient (CLI) | payer MEDICARE, SELFPAY ==
[2023-03-13 09:24] LABS: Anion Gap 12.6 mEq/L (5-15); Blood Urea Nitrogen 23 mg/dl (7-17); Calcium 9.7 mg/dl (8.4-10.2); Carbon Dioxide 26 mmol/L (22.0-30.0); Chloride 111 mmol/L (98-107); Estimated Glomerular Filt Rate 70 ml/min (>60); GFR (African American) 85 ML/MIN (>60); Glucose 91 mg/dl (74-100); Potassium 4.6 mmoL/L (3.5-5.1); Sodium 145 mmol/L (136-145)
== END ==
PROVIDERS: PCP Nurse Practitioner; Visit Provider Internal Medicine Nephrology
DX: R80.1 Persistent proteinuria, unspecified (principal)
CPT/HCPCS: 36415; 80048

== ENCOUNTER 2023-03-19 11:13 | Day surgery (SDC) | payer MEDICARE, SELFPAY ==
[2023-03-17 14:37] VITALS: BMI 18.5
[2023-03-19] VITALS (8 sets, daily range): BP systolic 94–133; BP diastolic 48–76; PULSE 59–68; RESP 14–18; TEMP 36.4–36.9; O2SAT 95–100
--- NOTE | 2023-03-19 12:34 | EXP.ANES.CKL ---
[facility] Disclaimer: The information contained in this section may have been updated after the patient was seen, as this information can be updated by other users. Medical History ASCVD (arteriosclerotic cardiovascular disease) COPD (chronic obstructive pulmonary disease) Essential hypertension Hx of thyroid cancer Hyperkalemia Hyperlipidemia Microalbuminuria Personal history of smoking Postsurgical hypothyroidism Surgical History History of open heart surgery History of thyroid surgery Hx of hysterectomy Family History Other Family history of cancer Family history of myocardial infarction Family history of stroke Social History Smoking Status: Current every day smoker tobacco type: cigarettes packs per day: 1 alcohol intake: never substance use type: denies use current occupational status: other Travel in the last 8 weeks: None household members: none housing: house current occupational exposures/hazards: No caffeine: Yes [facility] Anesthesia Checklist Patient Identification Patient Identification: Arm Band Structural Data Admitted From: Home Planned Operative Procedure/s: EGD Consent for Planned Operative Procedure(s) Verified: Yes Verified Documents: Surgical Consent and History and Physical NPO Status Verified Time NPO: 00:00 Additional verifications Anesthesia Reactions: No Airway Assessment C-Spine Mobility Assessed: Yes TMJ Mobility Assessed: Yes Dentition: Edentulous Neurological Assessment Level of Consciousness: Awake and Alert Anesthesia Plan Anesthesia Risk discussed: Yes Anesthesia Plan: Verified ASA Class: III Anesthesia Type: MAC
--- NOTE | 2023-03-19 13:46 | HMH.SCOPE ---
Procedure: Date: 03/19/23 Patient Date of :: 1945 Procedure Performed:: EGD & biopsies and dilation with bougie Indications:: Esophageal dysphagia, GERD Performing Provider:: Luzma Elaine MD Referring Provider:: Yvonne Elaine APRN Sedation:: Propofol Procedure:: The gastroscope was gently passed through the incisoral orifice into the oral cavity and under direct visualization the esophagus was intubated. The endoscope was passed down the esophagus, through the stomach, and into the duodenum. Color, texture, mucosa, and anatomy of the esophagus, stomach, and duodenum were carefully examined with the scope. Findings:: Oropharynx: normal Esophagus: normal, no evidence of barretts or esophagitis, dysphagia treated with several passes of a 56F bougie dilator EG Junction: intact at 40 cm Cardia: normal Fundus: normal Body: normal Antrum: normal, biopsies obtained for evaluation of h.pylori Duodenal bulb: normal Duodenum (second and third portion): normal Impression: Symptomatic dysphagia treated with bougie dilation Specimens:: Gastric Recommendations:: Consider repeat dilation in about THREE years or so, sooner if clinically indicated. Complications:: None Estimated blood obtained (mL): 0 Colonoscopy Component Colonoscopy Component Was a colonoscopy performed during today's procedure?: No
== END 2023-03-19 14:35 | disposition home or self-care (01) ==
PROVIDERS: PCP Nurse Practitioner; Visit Provider Internal Medicine Gastroenterology
PROC: 0DJ08ZZ Inspection of Upper Intestinal Tract, Via Natural or Artificial Opening Endoscopic (ICD-10-PCS; CPT 43235; principal; 2023-03-19 12:30)
DX: K21.9 Gastro-esophageal reflux disease without esophagitis (principal); K31.9 Disease of stomach and duodenum, unspecified; R13.10 Dysphagia, unspecified
CPT/HCPCS: 43239; 43248; 88305

== ENCOUNTER → 2023-06-18 07:24 | Outpatient (CLI) | payer MEDICARE, SELFPAY ==
[2023-06-18 18:28] LABS: Basophils # 0.1 K/mm3 (0-0.2); Basophils % 0.4 % (0.1-2.0); Eosinophils # 1.4 K/mm3 (0.0-0.4); Eosinophils % 12.8 % (0.1-12.0); Hematocrit 39.5 % (37.0-47.0); Hemoglobin 12.6 g/dL (12.2-16.2); Lymphocytes # 3.9 K/mm3 (0.7-4.5); Lymphocytes % 34.9 % (10-50); Mean Corpuscular HGB Conc 31.9 g/dL (31.8-35.4); Mean Corpuscular Hemoglobin 31.5 pg (27.0-31.2); Mean Corpuscular Volume 98.8 fl (81-99); Mean Platelet Volume 8.8 fl (7.4-10.4); Monocytes # 0.5 K/mm3 (0.1-1.0); Monocytes % 4.4 % (1.7-9.3); Neutrophils # 5.4 K/mm3 (1.8-7.8); Neutrophils % 47.5 % (37.0-80.0); Platelet Count 286 K/mm3 (142-424); Red Cell Distribution Width 13.1 % (11.5-17.5); White Blood Count 11.3 K/mm3 (4.8-10.8)
[2023-06-18 19:47] LABS: Creatinine,Urine Random 55 mg/dL (Not Estab.)
[2023-06-18 20:06] LABS: Alanine Aminotransferase 30 U/L (12-78); Albumin Level 4.1 g/dl (3.5-5.0); Albumin/Globulin Ratio 1.3 (1.1-1.8); Alkaline Phosphatase 178 U/L (38-126); Anion Gap 10.5 mEq/L (5-15); Aspartate Amino Transferase 35 U/L (14-36); Bilirubin,Total 0.4 mg/dl (0.2-1.3); Blood Urea Nitrogen 27 mg/dl (7-17); Calcium 9.3 mg/dl (8.4-10.2); Carbon Dioxide 26 mmol/L (22.0-30.0); Chloride 107 mmol/L (98-107); Chol/HDL Ratio 1.8 (1-3.5); Cholesterol 104 mg/dl (140-200); Estimated Glomerular Filt Rate 70 ml/min (>60); GFR (African American) 85 ML/MIN (>60); Globulin 3.2 g/dL (1.3-3.2); Glucose 92 mg/dl (74-100); HDL Cholesterol 57 mg/dl (40-60); Potassium 4.5 mmoL/L (3.5-5.1); Sodium 139 mmol/L (136-145); Total Protein,Serum 7.3 g/dl (6.3-8.2); Triglycerides 63 mg/dl (30-150); VLDL Cholesterol 13 mg/dL (0-40)
[2023-06-18 20:18] LABS: Direct LDL Cholesterol 41.91 mg/dL (100-129)
[2023-06-18 21:54] LABS: Microalbumin/Creatinine Ratio 1035.4
[2023-06-29 15:09] LABS: 1,25 Dihydroxy Vitamin D 41 pg/mL (.); 1,25-Dihydroxy, Vitamin D-2 <10 pg/mL (.); 1,25-Dihydroxy, Vitamin D-3 41 pg/mL (.)
== END ==
PROVIDERS: PCP Family Medicine; Visit Provider Family Medicine
DX: N39.0 Urinary tract infection, site not specified (principal); Z00.00 Encounter for general adult medical examination without abnormal findings; S90.32XD Contusion of left foot, subsequent encounter; I10 Essential (primary) hypertension; R80.9 Proteinuria, unspecified; R35.0 Frequency of micturition; Z79.899 Other long term (current) drug therapy
CPT/HCPCS: 80053; 80061; 82043; 82570; 82652; 85025

== ENCOUNTER → 2023-07-02 10:00 | Outpatient (CLI) | payer MEDICARE, SELFPAY ==
--- NOTE | 2023-07-02 10:01 | MM_ITS ---
PROCEDURE INFORMATION: Exam: MG Bilateral Screening 3D Mammography Exam date and time: 07/02/2023 10:16 AM Age: 77 years old Clinical indication: Screening examination TECHNIQUE: Imaging protocol: Bilateral Screening tomosynthesis and 2D mammography including computer-aided detection (CAD) when performed. COMPARISON: 1. MG DMSB DIG MAMM-SCREEN TOM 01/09/2014 3:32 PM 2. MG DMSB DIG MAMM-SCREEN TOM 12/23/2012 9:15 AM FINDINGS: MAMMOGRAPHY: Breast composition: There are scattered areas of fibroglandular density. Mass: None. Architectural distortion: None. Calcifications: No suspicious calcifications. Asymmetric density: None. Skin thickening: None. Axillary adenopathy: None. IMPRESSION: No mammographic evidence of malignancy. Annual screening is recommended unless otherwise clinically indicated. ASSESSMENT: BI-RADS Category 1: Negative
--- NOTE | 2023-07-02 10:01 | US_ITS ---
FINAL REPORT CLINICAL HISTORY: Acute kidney disease. COMPARISON: CT abdomen and pelvis dated 03/10/2019 FINDINGS: RENAL ULTRASOUND Ultrasound images of the kidneys were obtained. Limited images of the liver parenchyma demonstrates a lobular, complex but predominantly anechoic focus in the lateral segment of the left lobe of the liver measuring 3 cm. The right kidney measures 9.3 cm in length. The left kidney measures 9.2 cm in length. There is no hydronephrosis. There are multiple, small, benign appearing cysts in both kidneys. There is mildly increased echogenicity in both kidneys consistent with medical renal disease. IMPRESSION: Complex cyst in the left lobe of the liver, stable from 2019. Findings consistent with mild medical renal disease. Multiple benign appearing cysts in both kidneys. Reviewed, Interpreted and Dictated by Nando Grajeda MD Transcribed by Zenaida Le Authenticated and [facility]
== END ==
LOC: RAD 10:01
PROVIDERS: PCP Family Medicine; Visit Provider Family Medicine
DX: Z12.31 Encounter for screening mammogram for malignant neoplasm of breast (principal); R80.9 Proteinuria, unspecified
CPT/HCPCS: 76770; 77063; 77067

== ENCOUNTER 2023-07-23 19:40 | Outpatient (CLI) | payer MEDICARE, SELFPAY ==
[2023-07-23 19:57] LABS: Basophils # 0.1 K/mm3 (0-0.2); Basophils % 0.8 % (0.1-2.0); Eosinophils # 2.1 K/mm3 (0.0-0.4); Eosinophils % 18.5 % (0.1-12.0); Hematocrit 40.8 % (37.0-47.0); Hemoglobin 13.4 g/dL (12.2-16.2); Lymphocytes # 3.8 K/mm3 (0.7-4.5); Lymphocytes % 32.8 % (10-50); Mean Corpuscular HGB Conc 32.8 g/dL (31.8-35.4); Mean Corpuscular Volume 97.7 fl (81-99); Mean Platelet Volume 8.5 fl (7.4-10.4); Monocytes # 0.5 K/mm3 (0.1-1.0); Monocytes % 4.5 % (1.7-9.3); Neutrophils % 43.3 % (37.0-80.0); Platelet Count 345 K/mm3 (142-424); Red Blood Count 4.18 M/mm3 (4.20-5.40); Red Cell Distribution Width 13.6 % (11.5-17.5); White Blood Count 11.5 K/mm3 (4.8-10.8)
[2023-07-23 20:30] LABS: Chloride 109 mmol/L (98-107); Potassium 5.3 mmoL/L (3.5-5.1); Sodium 140 mmol/L (136-145)
[2023-07-23 20:32] LABS: Alanine Aminotransferase 19 U/L (12-78); Albumin Level 3.9 g/dl (3.5-5.0); Alkaline Phosphatase 303 U/L (38-126); Aspartate Amino Transferase 28 U/L (14-36); Bilirubin,Total 0.6 mg/dl (0.2-1.3); Blood Urea Nitrogen 24 mg/dl (7-17); Estimated Glomerular Filt Rate 61 ml/min (>60); GFR (African American) 74 ML/MIN (>60)
[2023-07-23 20:33] LABS: Albumin/Globulin Ratio 1.1 (1.1-1.8); Anion Gap 11.3 mEq/L (5-15); Calcium 9.4 mg/dl (8.4-10.2); Carbon Dioxide 25 mmol/L (22.0-30.0); Chol/HDL Ratio 2.1 (1-3.5); Cholesterol 103 mg/dl (140-200); Globulin 3.4 g/dL (1.3-3.2); Glucose 92 mg/dl (74-100); HDL Cholesterol 49 mg/dl (40-60); Total Protein,Serum 7.3 g/dl (6.3-8.2); Triglycerides 84 mg/dl (30-150); VLDL Cholesterol 17 mg/dL (0-40)
[2023-07-23 20:44] LABS: Direct LDL Cholesterol 42.44 mg/dL (100-129)
[2023-07-23 20:50] LABS: T4 (Thyroxine) 10.1 ug/dl (5.53-11.0)
[2023-07-23 21:04] LABS: Thyroid Stimulating Hormone 2.57 uIU/mL (0.465-4.68)
== END 2023-07-23 23:59 ==
PROVIDERS: PCP Family Medicine; Visit Provider Family Medicine
DX: E03.9 Hypothyroidism, unspecified (principal); E78.5 Hyperlipidemia, unspecified; Z79.899 Other long term (current) drug therapy
CPT/HCPCS: 80053; 80061; 84436; 84443; 85025

== ENCOUNTER 2024-05-19 12:21 | Outpatient (CLI) | payer MEDICARE, SELFPAY ==
--- NOTE | 2024-05-19 12:25 | XR_ITS ---
FINAL REPORT CLINICAL HISTORY: Lumbar back pain w/o trauma COMPARISON: None FINDINGS: LUMBAR SPINE: AP and lateral views of the lumbar spine were obtained. There is no prior exam for comparison. There is no acute fracture or malalignment. Vertebral body height is preserved. Mild and moderate degenerative change is present. Multilevel facet arthropathy is noted. There is a right curvature of the lumbar spine. Vascular calcifications are identified. IMPRESSION: Mild and moderate degenerative change as described above, without acute bony abnormality. Authenticated and [facility]
== END 2024-05-19 23:59 | disposition home or self-care (01) ==
LOC: RAD 12:21
PROVIDERS: PCP Family Medicine; Visit Provider Family Medicine
DX: M54.50 Low back pain, unspecified (principal)
CPT/HCPCS: 72100

== ENCOUNTER 2024-08-31 11:20 | Outpatient (CLI) | payer MEDICARE, SELFPAY ==
[2024-08-31 18:37] LABS: Albumin Level 4.3 g/dl (3.5-5.0); Chloride 108 mmol/L (98-107); Potassium 5.7 mmoL/L (3.5-5.1); Sodium 141 mmol/L (136-145)
[2024-08-31 18:40] LABS: Alanine Aminotransferase 35 U/L (12-78); Albumin/Globulin Ratio 1.6 (1.1-1.8); Alkaline Phosphatase 124 U/L (38-126); Anion Gap 11.7 mEq/L (5-15); Aspartate Amino Transferase 35 U/L (14-36); Bilirubin,Total 0.5 mg/dl (0.2-1.3); Blood Urea Nitrogen 18 mg/dl (7-17); Carbon Dioxide 27 mmol/L (22.0-30.0); Chol/HDL Ratio 1.6 (1-3.5); Cholesterol 95 mg/dl (140-200); Estimated Glomerular Filt Rate 70 ml/min (>60); GFR (African American) 84 ML/MIN (>60); Globulin 2.7 g/dL (1.3-3.2); Glucose 91 mg/dl (74-100); HDL Cholesterol 58 mg/dl (40-60); Triglycerides 76 mg/dl (30-150); VLDL Cholesterol 15 mg/dL (0-40)
[2024-08-31 18:57] LABS: Direct LDL Cholesterol < 30.00 mg/dL (100-129)
== END 2024-08-31 23:59 | disposition home or self-care (01) ==
LOC: LAB.DROPOF 09-01 10:49
PROVIDERS: PCP Family Medicine; Visit Provider Family Medicine
DX: I10 Essential (primary) hypertension (principal); J44.9 Chronic obstructive pulmonary disease, unspecified; E89.0 Postprocedural hypothyroidism; Z85.850 Personal history of malignant neoplasm of thyroid
CPT/HCPCS: 80053; 80061; 84443

== ENCOUNTER 2024-09-05 21:54 | Outpatient (CLI) | payer MEDICARE, SELFPAY ==
[2024-09-05 22:54] LABS: Blood Urea Nitrogen 20 mg/dl (7-17); Calcium 9.9 mg/dl (8.4-10.2); Estimated Glomerular Filt Rate 61 ml/min (>60); GFR (African American) 74 ML/MIN (>60); Glucose 87 mg/dl (74-100)
[2024-09-05 23:09] LABS: Anion Gap 9.7 mEq/L (5-15); Carbon Dioxide 25 mmol/L (22.0-30.0); Chloride 106 mmol/L (98-107); Potassium 4.7 mmoL/L (3.5-5.1); Sodium 136 mmol/L (136-145)
== END 2024-09-05 23:59 | disposition home or self-care (01) ==
LOC: LAB 21:56
PROVIDERS: PCP Family Medicine; Visit Provider Family Medicine
DX: E87.5 Hyperkalemia (principal)
CPT/HCPCS: 80048

== ENCOUNTER 2024-09-06 10:45 | Outpatient (CLI) | payer MEDICARE, SELFPAY ==
[2024-09-06 11:37] LABS: Alanine Aminotransferase 65 U/L (12-78); Albumin Level 4.3 g/dl (3.5-5.0); Alkaline Phosphatase 113 U/L (38-126); Aspartate Amino Transferase 49 U/L (14-36); Bilirubin,Direct 0.2 mg/dl (0.0-0.4); Bilirubin,Indirect 0.3 mg/dL (0.0-0.9); Bilirubin,Total 0.5 mg/dl (0.2-1.3); Bilirubin,Unconjugated 0.3 mg/dL (0.0-1.1); Chol/HDL Ratio 1.7 (1-3.5); Cholesterol 91 mg/dl (140-200); HDL Cholesterol 55 mg/dl (40-60); Total Protein,Serum 6.9 g/dl (6.3-8.2); Triglycerides 89 mg/dl (30-150); VLDL Cholesterol 18 mg/dL (0-40)
[2024-09-06 12:01] LABS: Direct LDL Cholesterol < 30.00 mg/dL (100-129)
== END 2024-09-06 23:59 | disposition home or self-care (01) ==
LOC: LAB 10:46
PROVIDERS: PCP Family Medicine; Visit Provider Internal Medicine Interventional Cardiology
DX: I25.9 Chronic ischemic heart disease, unspecified (principal); E78.00 Pure hypercholesterolemia, unspecified; R80.9 Proteinuria, unspecified
CPT/HCPCS: 36415; 80061; 80076

== ENCOUNTER 2024-12-16 07:08 | Outpatient (CLI) | payer MEDICARE, SELFPAY ==
--- NOTE | 2024-12-16 07:30 | CT_ITS ---
FINAL REPORT TECHNIQUE: Thin section axial images were obtained through the lungs using a low-dose technique per lung cancer screening protocol. Reconstruction images were obtained using the axial data. Exam was performed using dose reduction technique. CLINICAL HISTORY: lung cancer screening current smoker 2ppd x60 years COMPARISON: 01/29/2023 and 03/01/2019 FINDINGS: CTDLvol: 2.90 DLP: 98.73 Current smoker 120 pack year history Lungs: Biapical pleural scarring is stable. There is a right lower lobe nodule on series 4 image 42 measuring 4 mm which is unchanged and stable since 2019. Subpleural 3 mm right lower lobe nodule on image 46. No new nodules or masses. No consolidations. Lymph nodes: No thoracic lymphadenopathy. Mediastinum: Heart size is normal. Prominent coronary artery calcifications. Vascular stent within the left subclavian artery at the origin. Pleura/pericardium: No pleural or pericardial effusion. Other: No acute abnormality in the upper abdomen. IMPRESSION: Stable small right lung nodules. Lung RADS: 2S Recommendation: 12-month follow-up low-dose chest CT per Fleischner criteria. Modifier S: Prominent coronary artery calcifications. Reviewed, Interpreted and Dictated by Maria Luisa Sloan MD Transcribed by Olga Buckley Authenticated and [facility]
--- NOTE | 2024-12-16 08:00 | MM_ITS ---
PROCEDURE INFORMATION: Exam: MG Bilateral Screening 3D Mammography Exam date and time: 12/16/2024 8:08 AM Age: 78 years old Clinical indication: Screening mammogram TECHNIQUE: Imaging protocol: Bilateral Screening tomosynthesis and 2D mammography including computer-aided detection (CAD) when performed. COMPARISON: 1. MG MM DIG SCREENING MAMM BI W/CAD 07/02/2023 10:16 AM 2. MG DMSB DIG MAMM-SCREEN TOM 01/09/2014 3:32 PM 3. MG DMSB DIG MAMM-SCREEN TOM 12/23/2012 9:15 AM 4. MG DMSB DIGITAL MAMM-SCREEN BILATERAL 12/23/2011 8:52 AM FINDINGS: MAMMOGRAPHY: Breast composition: There are scattered areas of fibroglandular density. Mass: None. Architectural distortion: No new or suspicious architectural distortion. Calcifications: No new or suspicious calcifications are present Asymmetric density: No new or suspicious asymmetric density is present Skin thickening: None. Axillary adenopathy: None. IMPRESSION: No mammographic evidence of malignancy. Recommend annual screening mammography unless otherwise clinically indicated. ASSESSMENT: BI-RADS category 1: Negative.
== END 2024-12-16 23:59 | disposition home or self-care (01) ==
LOC: RAD 07:09
PROVIDERS: PCP Family Medicine; Visit Provider Family Medicine
DX: Z12.31 Encounter for screening mammogram for malignant neoplasm of breast (principal); Z12.2 Encounter for screening for malignant neoplasm of respiratory organs; R92.323 Mammographic fibroglandular density, bilateral breasts; R91.8 Other nonspecific abnormal finding of lung field; F17.210 Nicotine dependence, cigarettes, uncomplicated
CPT/HCPCS: 71271; 77063; 77067